=== PATIENT | female | born 1965 | race American Indian/Alaskan Native ===

== ENCOUNTER 2018-11-17 02:32 | Inpatient (IN) | payer BC ==
[2018-11-17] MEDS ORDERED: HYDROmorphone 1 MG/ML Syringe IVPUSH ONE (02:52)
[2018-11-17] MEDS ORDERED: Ondansetron 4 MG Tab.DIS PO ONE (02:52)
[2018-11-17] MEDS: Sodium Chloride 0.9% 10 ML Syringe FLUSH PRN ×2 (02:59→04:49)
[2018-11-17] MEDS ORDERED: Lactated Ringers 1,000 ML IV ONE ×2 (03:03→07:23)
--- NOTE | 2018-11-17 03:09 | EDM.PDOC ---
<MariuszBob G - Last Filed: 11/17/18 05:27> ED HPI GENERAL MEDICAL PROBLEM - General Chief Complaint: Abdominal Pain Stated Complaint: STOMACH PAIN Time Seen by Provider: 11/17/18 02:50 Source of Information: Reports: Patient, Old Records, RN History Limitations: Reports: No Limitations - History of Present Illness INITIAL COMMENTS - FREE TEXT/NARRATIVE: 53 yo NA female presents with epigastric pain that began about 0100h today. Pain has progressed since its onset and includes nausea. No hx of the same. Her only abdominal surgeries were for c-sections. Pain comes in waves. Feels a lot like labor pains only higher. Onset: Today Onset Date: 11/17/18 Onset Time: 01:00 Duration: Hour(s): (2), Getting Worse, Waxing/Waning Location: Reports: Abdomen (epigastric) Quality: Reports: Pressure Severity: Severe Improves with: Reports: Medication (in ER) Worsens with: Reports: Other (unknown) Context: Reports: Other (See HPI) Associated Symptoms: Reports: Nausea/Vomiting. Denies: Fever/Chills Treatments ONCOLOGY COORDINATOR: Reports: Other (see below) (none) epigastric Pain Score (Numeric/FACES): 10 - Related Data Allergies Allergy/AdvReac Type Severity Reaction Status Date / Time bee venom protein (honey bee) Allergy Anaphylactic Verified 11/17/18 04:07 Shock corn Allergy Anaphylactic Verified 11/17/18 04:07 Shock nut - unspecified Allergy Anaphylactic Verified 11/17/18 04:07 Shock topiramate Allergy Hives Verified 11/17/18 02:42 verapamil Allergy Other Verified 11/17/18 04:07 Home Meds: Home Meds Cetirizine HCl [Zyrtec] 10 mg PO DAILY 11/17/18 [History] Cyanocobalamin (Vitamin B-12) [Vitamin B-12] 1,000 mcg PO Q30D 11/17/18 [History ] Thyroid,Pork [Archives Technician Thyroid] 120 mg PO DAILY 11/17/18 [History] buPROPion HCl [Wellbutrin SR] 300 mg PO DAILY 11/17/18 [History] Past Medical History Genitourinary History: Reports: Renal Calculus 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 History: Reports: Musculoskeletal History: Reports: Fracture Neurological History: Reports: Head Trauma, Migraines Psychiatric History: Reports: Depression Endocrine/Metabolic History: Reports: Hypothyroidism, Obesity/BMI 30+, Vitamin D Deficiency - Past Surgical History Female Surgical History: Reports: Section, Tubal Ligation Musculoskeletal Surgical History: Reports: Ganglion Cyst Social & Family History - Tobacco Use Smoking Status *Q: Current Every Day Smoker Years of Tobacco use: 35 Packs/Tins Daily: 0.2 - Caffeine Use Caffeine Use: Reports: Soda - Recreational Drug Use Recreational Drug Use: No ED ROS GENERAL - Review of Systems Review Of Systems: See Below Constitutional: Reports: No Symptoms HEENT: Reports: No Symptoms Respiratory: Reports: No Symptoms Cardiovascular: Reports: No Symptoms Endocrine: Reports: No Symptoms GI/Abdominal: Reports: Abdominal Pain, Nausea, Vomiting. Denies: Black Stool, Bloody Stool, Constipation, Diarrhea, Distension, Flatus, Hematemesis, Hematochezia, Melena : Reports: No Symptoms Musculoskeletal: Reports: No Symptoms Skin: Reports: No Symptoms Neurological: Reports: No Symptoms Psychiatric: Reports: No Symptoms ED EXAM, GI/ABD - Physical Exam Exam: See Below Exam Limited By: No Limitations General Appearance: Alert, WD/WN, Moderate Distress Eyes: Bilateral: Normal Appearance Ears: Normal External Exam, Normal Canal, Hearing Grossly Normal Nose: Normal Inspection, No Blood Throat/Mouth: Normal Inspection, Normal Lips, Normal Oropharynx, Normal Voice, No Airway Compromise Head: Atraumatic, Normocephalic Neck: Normal Inspection Respiratory/Chest: No Respiratory Distress, Lungs Clear, Normal Breath Sounds, No Accessory Muscle Use Cardiovascular: Regular Rate, Rhythm, No Edema GI/Abdominal Exam: No Distention, Guarding, Tender (epigastric and RUQ tenderness.). No: Soft, Non-Tender, Distended Back Exam: Normal Inspection. No: CVA Tenderness (R), CVA Tenderness (L) Extremities: Normal Inspection, Normal Range of Motion, Non-Tender, No Pedal Edema Neurological: Alert, Oriented, CN II-XII Intact, Normal Cognition, No Motor/ Sensory Deficits Psychiatric: Normal Affect, Normal Mood Skin Exam: Warm, Dry, Intact, Normal Color, No Rash EKG INTERPRETATION EKG Date: 11/17/18 Time: 03:05 Rhythm: NSR Rate (Beats/Min): 66 Floyd: Normal P-Wave: Present QRS: Normal ST-T: Normal QT: Normal Comparison: NA - No Prior EKG Course - Vital Signs Last Recorded V/S: Last Vital Signs Temp 96.5 F 11/17/18 02:38 Pulse 74 11/17/18 06:27 Resp 17 11/17/18 06:27 BP 152/74 H 11/17/18 06:27 Pulse Ox 98 11/17/18 06:27 - Orders/Labs/Meds Orders: Active Orders 24 hr Category Date Time Status Cardiac Monitoring [RC] .As Directed Care 11/17/18 02:51 Active EKG Documentation Completion [RC] ASDIRECTED Care 11/17/18 02:51 Active Iopamidol [Isovue-300 (61%)] Med 11/17/18 04:32 Active 100 ml IV . DIRECTED PRN Lactated Ringers [Ringers, Lactated] 1,000 ml Med 11/17/18 04:00 Active IV ASDIRECTED Lactated Ringers [Ringers, Lactated] 1,000 ml Med 11/17/18 07:23 Active IV BOLUS Sodium Chloride 0.9% [Normal Saline] 75 ml Med 11/17/18 04:45 Active IV ASDIRECTED Sodium Chloride 0.9% [Saline Flush] Med 11/17/18 02:52 Active 10 ml FLUSH ASDIRECTED PRN Saline Lock Insert [OM.PC] Routine Oth 11/17/18 02:52 Ordered EKG 12 Lead [EK] Routine Ther 11/17/18 02:51 Ordered Medication Orders Lactated Ringer's (Ringers, Lactated) 1,000 mls @ 500 mls/hr IV ASDIRECTED [facility] Last Admin: 11/17/18 05:01 Dose: 500 mls/hr Sodium Chloride (Normal Saline) 75 mls @ 3 mls/sec IV ASDIRECTED IVETH Last Admin: 11/17/18 04:49 Dose: 3 mls/sec Lactated Ringer's (Ringers, Lactated) 1,000 mls @ 500 mls/hr IV BOLUS ONE Stop: 11/17/18 09:22 Last Admin: 11/17/18 07:29 Dose: 500 mls/hr Iopamidol (Isovue-300 (61%)) 100 ml IV . DIRECTED PRN PRN Reason: RADIOLOGY EXAM Stop: 11/18/18 04:33 Last Admin: 11/17/18 04:49 Dose: 100 ml Sodium Chloride (Saline Flush) 10 ml FLUSH ASDIRECTED PRN PRN Reason: Keep Vein Open Last Admin: 11/17/18 04:49 Dose: 10 ml Admin: 11/17/18 02:59 Dose: 10 ml Labs: Laboratory Tests 11/17/18 11/17/18 11/17/18 Range/Units 03:03 03:03 03:49 WBC 12.6 H (4.5-11.0) K/uL RBC 4.88 (3.30-5.50) M/uL Hgb 14.3 (12.0-15.0) g/dL Hct 41.9 (36.0-48.0) % MCV 86 (80-98) fL MCH 29 (27-31) pg MCHC 34 (32-36) % Plt Count 323 (150-400) K/uL Sodium 142 (140-148) mmol/L Potassium 3.8 (3.6-5.2) mmol/L Chloride 104 (100-108) mmol/L Carbon Dioxide 25 (21-32) mmol/L Anion Gap 12.8 (5.0-14.0) mmol/L BUN 17 (7-18) mg/dL Creatinine 1.1 H (0.6-1.0) mg/dL Est Cr Clr Drug Dosing 42.00 mL/min Estimated GFR (MDRD) 52 L (>60) Glucose 211 H (74-106) mg/dL Calcium 8.6 (8.5-10.1) mg/dL Total Bilirubin 0.8 (0.2-1.0) mg/dL AST 247 H (15-37) U/L ALT 198 H (12-78) U/L Alkaline Phosphatase 159 H (46-116) U/L Total Protein 6.8 (6.4-8.2) g/dL Albumin 3.6 (3.4-5.0) g/dL Globulin 3.2 (2.3-3.5) g/dL Albumin/Globulin Ratio 1.1 L (1.2-2.2) Triglycerides (15-150) mg/dL Lipase 63435 H (73-393) U/L Urine Color Bee Urine Appearance Cloudy Urine pH 5.0 (4.5-8.0) Ur Specific [place] 1.020 (1.008-1.030) Urine Protein Trace (NEGATIVE) mg/dL Urine Glucose (UA) Normal (NEGATIVE) mg/dL Urine Ketones Negative (NEGATIVE) mg/dL Urine Occult Blood Trace (NEGATIVE) Urine Nitrite Negative (NEGATIVE) Urine Bilirubin Small (NEGATIVE) Urine Urobilinogen 8 (NORMAL) mg/dL Ur Leukocyte Esterase Negative (NEGATIVE) Urine RBC 0-5 (0-5) Urine WBC 0-5 (0-5) Ur Epithelial Cells Moderate Amorphous Sediment Few Urine Bacteria Rare Urine Mucus Moderate Urine Other See note 11/17/18 Range/Units 06:52 WBC (4.5-11.0) K/uL RBC (3.30-5.50) M/uL Hgb (12.0-15.0) g/dL Hct (36.0-48.0) % MCV (80-98) fL MCH (27-31) pg MCHC (32-36) % Plt Count (150-400) K/uL Sodium (140-148) mmol/L Potassium (3.6-5.2) mmol/L Chloride (100-108) mmol/L Carbon Dioxide (21-32) mmol/L Anion Gap (5.0-14.0) mmol/L BUN (7-18) mg/dL Creatinine (0.6-1.0) mg/dL Est Cr Clr Drug Dosing mL/min Estimated GFR (MDRD) (>60) Glucose (74-106) mg/dL Calcium (8.5-10.1) mg/dL Total Bilirubin (0.2-1.0) mg/dL AST (15-37) U/L ALT (12-78) U/L Alkaline Phosphatase (46-116) U/L Total Protein (6.4-8.2) g/dL Albumin (3.4-5.0) g/dL Globulin (2.3-3.5) g/dL Albumin/Globulin Ratio (1.2-2.2) Triglycerides 115 (15-150) mg/dL Lipase (73-393) U/L Urine Color Urine Appearance Urine pH (4.5-8.0) Ur Specific [place] (1.008-1.030) Urine Protein (NEGATIVE) mg/dL Urine Glucose (UA) (NEGATIVE) mg/dL Urine Ketones (NEGATIVE) mg/dL Urine Occult Blood (NEGATIVE) Urine Nitrite (NEGATIVE) Urine Bilirubin (NEGATIVE) Urine Urobilinogen (NORMAL) mg/dL Ur Leukocyte Esterase (NEGATIVE) Urine RBC (0-5) Urine WBC (0-5) Ur Epithelial Cells Amorphous Sediment Urine Bacteria Urine Mucus Urine Other Meds: Medications Generic Name Dose Route Start Last Admin Trade Name Freq PRN Reason Stop Dose Admin Lactated Ringer's 1,000 mls @ 500 mls/hr 11/17/18 04:00 11/17/18 05:01 Ringers, Lactated IV 500 mls/hr ASDIRECTED IVETH Administration Sodium Chloride 75 mls @ 3 mls/sec 11/17/18 04:45 11/17/18 04:49 Normal Saline IV 3 mls/sec ASDIRECTED IVETH Administration Lactated Ringer's 1,000 mls @ 500 mls/hr 11/17/18 07:23 11/17/18 07:29 Ringers, Lactated IV 11/17/18 09:22 500 mls/hr BOLUS ONE Administration Iopamidol 100 ml 11/17/18 04:32 11/17/18 04:49 Isovue-300 (61%) IV 11/18/18 04:33 100 ml . DIRECTED PRN Administration RADIOLOGY EXAM Sodium Chloride 10 ml 11/17/18 02:52 11/17/18 04:49 Saline Flush FLUSH 10 ml ASDIRECTED PRN Administration Keep Vein Open Discontinued Medications Generic Name Dose Route Start Last Admin Trade Name Freq PRN Reason Stop Dose Admin Fentanyl 100 mcg 11/17/18 07:32 11/17/18 07:42 Sublimaze IVPUSH 11/17/18 07:33 100 mcg ONETIME ONE Administration Hydromorphone HCl 1 mg 11/17/18 02:52 11/17/18 02:57 Dilaudid IVPUSH 11/17/18 02:53 1 mg ONETIME ONE Administration Hydromorphone HCl 0.5 mg 11/17/18 03:22 11/17/18 03:28 Dilaudid IVPUSH 11/17/18 03:23 0.5 mg ONETIME ONE Administration Hydromorphone HCl 0.5 mg 11/17/18 06:33 11/17/18 06:37 Dilaudid IVPUSH 11/17/18 06:34 0.5 mg ONETIME ONE Administration Lactated Ringer's 1,000 mls @ 1,000 mls/hr 11/17/18 03:03 11/17/18 03:14 Ringers, Lactated IV 11/17/18 04:02 1,000 mls/hr BOLUS ONE Administration Ondansetron HCl 4 mg 11/17/18 02:52 11/17/18 02:56 Zofran Odt PO 11/17/18 02:53 4 mg ONETIME ONE Administration Ondansetron HCl 4 mg 11/17/18 03:47 11/17/18 04:09 Zofran Odt PO 11/17/18 03:48 4 mg ONETIME ONE Administration - Radiology Interpretation Free Text/Narrative:: CT abd/pelvis with IV contrast-acute pancreatitis CT Results Date: 11/17/18 CT Results Time: 05:20 Departure - Departure Disposition: Admitted As Inpatient 65 Clinical Impression: Elevated LFTs Acute pancreatitis Qualifiers: Pancreatitis type: biliary Acute pancreatitis complication: no infection or necrosis Qualified Code(s): K85.10 - Biliary acute pancreatitis without necrosis or infection - Discharge Information *PRESCRIPTION DRUG MONITORING PROGRAM REVIEWED*: No *COPY OF PRESCRIPTION DRUG MONITORING REPORT IN PATIENT KATYA: No Referrals: PCP,None [Primary Care Provider] - Forms: ED Department Discharge - My Orders Last 24 Hours: My Active Orders 11/17/18 07:23 Lactated Ringers [Ringers, Lactated] 1,000 ml IV BOLUS - Assessment/Plan Last 24 Hours: My Active Orders 11/17/18 07:23 Lactated Ringers [Ringers, Lactated] 1,000 ml IV BOLUS <Zay Esposito - Last Filed: 11/17/18 08:56> Departure - Departure Time of Disposition: 08:56 - Assessment/Plan Plan: Took over care from Dr. Richards at 7 AM Assessment Acuity = acute Site and laterality = acute cholecystitis with pancreatitis Etiology = probable gallstone etiology Manifestations = abdominal pain Location of injury = Home Lab values = WBC elevated 12.6 consistent leukocytosis, creatinine elevated 1.1 consistent with acute renal failure stage G IIIa AST elevated 247 ALG elevated 198 consistent with elevated liver enzymes lipase elevated 43,438 consistent with a pancreatitis triglycerides normal at 1:[address] scan shows acute pancreatitis ultrasound shows thickened gallbladder wall with gallstones of normal bile ducts no intrahepatic dilation consistent with acute cholecystitis Plan Called discussed case hospitalist environmental services attendant at 8:30 kindly agreed to come and evaluate the patient in the hospital for admission This note was dictated using [employer] voice recognition software please call with any questions on syntax or grammar.
[2018-11-17] MEDS ORDERED: HYDROmorphone 0.5 MG/0.5 ML Syringe IVPUSH ONE ×2 (03:22→06:33)
[2018-11-17] MEDS: Ondansetron 4 MG Tab.DIS PO ONE ×2 (03:55→04:09)
[2018-11-17] MEDS ORDERED: Lactated Ringers 1,000 ML IV SCH (04:00)
[2018-11-17] MEDS ORDERED: Iopamidol 612 MG/ML 100 ML Bottle IV PRN (04:32)
[2018-11-17] MEDS ORDERED: Sodium Bicarbonate 8.4% 50 MEQ/50 ML Syringe IVPUSH ONE (04:32)
[2018-11-17] MEDS ORDERED: Sodium Chloride 0.9% 75 ML IV SCH (04:45)
--- NOTE | 2018-11-17 05:16 | CRLCT ---
INDICATION: Pancreatitis with elevated liver function tests and abdominal pain TECHNIQUE: CT Abdomen and pelvis with i.v. contrast. Coronal and sagittal reformats were obtained. CONTRAST: 100 mL Isovue COMPARISON: None FINDINGS: Lower chest: There is a 7 mm nodule present within the right middle lobe. Liver: Unremarkable. Spleen: Unremarkable. Pancreas: Mild retroperitoneal edema is present surrounding the pancreas and tracking along the Gerota`s fascia bilaterally. No pancreatic necrosis is seen. Gallbladder: There is a 1.8 cm calcified gallstone present. Kidney: A simple cyst is seen upper pole of the left kidney measuring 3.3 cm. Punctate renal cysts are present in the lower pole of the right kidney. Adrenal: Unremarkable. Bowel: Moderate sigmoid diverticulosis is present with no evidence of diverticulitis. The appendix is normal in appearance and size. Vascular: Unremarkable. Lymph: Unremarkable. Peritoneum: Unremarkable. No pneumoperitoneum is seen. No significant ascites is noted. Pelvis: Unremarkable. Soft tissue: Unremarkable. Bone: Mild chronic compression deformity and Schmorl`s node seen along the superior endplate of L5. IMPRESSIONS: 1. There is a 7 mm nodule present within the right middle lobe. Initial followup chest CT in 6-12 months and subsequent followup at 18-24 months is advised in accordance with the 2017 Revised Fleischner Society Recommendations. 2. Mild retroperitoneal edema is present surrounding the pancreas and tracking along the Gerota`s fascia bilaterally. Findings compatible with diagnosis of acute pancreatitis. Dictated by Taj Main MD @ 11/17/2018 5:14:15 AM Please note that all CT scans at this facility use dose modulation, iterative reconstruction, and/or weight-based dosing when appropriate to reduce radiation dose to as low as reasonably achievable. Dictated by: Taj Main MD @ 11/17/2018 05:14:18 (Electronically Signed)
[2018-11-17] MEDS ORDERED: fentaNYL 100 MCG/2 ML SDV IVPUSH ONE (07:32)
--- NOTE | 2018-11-17 08:18 | CRLUS ---
INDICATION: PANCREATITIS. MILD LFTS ELEVATION. RUQ PAIN. COMPARISON: CT scan of the abdomen and pelvis dated 17 November 2018. FINDINGS: An abdominal ultrasound shows normal size, contour, and echogenicity of the liver. No bile duct dilation with the common bile duct measuring just under 6 mm. 2.4 cm gallstone in the gallbladder. A few other smaller gallstones. Mild gallbladder wall thickening. Positive sonographic Dueñas`s sign. No abnormalities identified in the visualized portions of the pancreatic head and body, aorta, IVC, and right kidney. No right-sided hydronephrosis. IMPRESSION: Cholelithiasis with sonographic evidence of cholecystitis. Dictated by Miller Farris MD @ 11/17/2018 8:16:22 AM Dictated by: Miller Farris MD @ 11/17/2018 08:16:43 (Electronically Signed)
--- NOTE | 2018-11-17 10:09 | PCM.HP ---
H&P History of Present Illness - General Date of Service: 11/17/18 Admit Problem/Dx: Admission Diagnosis/Problem Admission Diagnosis/Problem Pancreatitis Source of Information: Patient, Provider, RN Notes Reviewed History Limitations: Reports: No Limitations - History of Present Illness Initial Comments - Free Text/Narative: Ms. Lloyd is a 53-year-old woman who was admitted through the emergency department with severe abdominal pain and nausea secondary to pancreatitis and cholecystitis. She felt well until about 24 hours prior to admission when she noted mild to moderate ache in her abdomen radiating to the back. It improved through the day but then recurred much more severely early this morning. She presented to the emergency department and on evaluation was found to have marked elevation in lipase level at 43,000, elevation in transaminase levels and alkaline phosphatase. Bilirubin was found to be within normal range. She was tachycardic and tachypneic on initial presentation, after fluids respiratory rate and heart rate have improved. Abdominal pain has improved since admission, but she has received regular doses of Dilaudid. CT scan of the abdomen showed evidence of pancreatitis, no pancreatic necrosis. Abdominal ultrasound was also obtained and shows evidence of acute cholecystitis with cholelithiasis. There was no evidence of ductal dilatation. epigastric Pain Score (Numeric/FACES): 10 - Related Data Allergies/Adverse Reactions: Allergies Allergy/AdvReac Type Severity Reaction Status Date / Time bee venom protein (honey bee) Allergy Anaphylactic Verified 11/17/18 04:07 Shock corn Allergy Anaphylactic Verified 11/17/18 04:07 Shock nut - unspecified Allergy Anaphylactic Verified 11/17/18 04:07 Shock topiramate Allergy Hives Verified 11/17/18 02:42 verapamil Allergy Other Verified 11/17/18 04:07 Home Medications: Home Meds Cetirizine HCl [Zyrtec] 10 mg PO DAILY 11/17/18 [History] Cyanocobalamin (Vitamin B-12) [Vitamin B-12] 1,000 mcg PO Q30D 11/17/18 [History ] Thyroid,Pork [Sanding Machine Buffer Thyroid] 120 mg PO DAILY 11/17/18 [History] buPROPion HCl [Wellbutrin SR] 300 mg PO DAILY 11/17/18 [History] Past Medical History Genitourinary History: Reports: Renal Calculus 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: Musculoskeletal History: Reports: Fracture Neurological History: Reports: Head Trauma, Migraines Psychiatric History: Reports: Depression Endocrine/Metabolic History: Reports: Hypothyroidism, Obesity/BMI 30+, Vitamin D Deficiency - Past Surgical History Female Surgical History: Reports: Section, Tubal Ligation Musculoskeletal Surgical History: Reports: Ganglion Cyst Social & Family History - Tobacco Use Smoking Status *Q: Current Every Day Smoker Years of Tobacco use: 35 Packs/Tins Daily: 0.2 - Caffeine Use Caffeine Use: Reports: Soda - Recreational Drug Use Recreational Drug Use: No H&P Review of Systems - Review of Systems: Review Of Systems: See Below General: Reports: Chills, Weakness. Denies: Fever HEENT: Reports: No Symptoms Pulmonary: Reports: No Symptoms Cardiovascular: Reports: No Symptoms Gastrointestinal: Reports: Abdominal Pain, Decreased Appetite, Distension, Nausea, Vomiting. Denies: Black Stool, Bloody Stool, Constipation, Diarrhea, Difficulty Swallowing Genitourinary: Reports: No Symptoms Musculoskeletal: Reports: Back Pain. Denies: Neck Pain Skin: Reports: No Symptoms Psychiatric: Reports: No Symptoms Neurological: Reports: No Symptoms Hematologic/Lymphatic: Reports: No Symptoms Immunologic: Reports: No Symptoms Exam - Exam Exam: See Below - Vital Signs Vital Signs: Last Vital Signs Temp 96.5 F 11/17/18 02:38 Pulse 74 11/17/18 06:27 Resp 17 11/17/18 06:27 BP 152/74 H 11/17/18 06:27 Pulse Ox 98 11/17/18 06:27 Weight: 170 lb - Exam Quality Assessment: DVT Prophylaxis General: Alert, Oriented, Cooperative, Moderate Distress HEENT: Conjunctiva Clear, Hearing Intact, Mucosa Moist & [place], Normal Nasal Septum, Posterior Pharynx Clear, Pupils Equal Neck: Supple, Trachea Midline, +2 Carotid Pulse wo Bruit Lungs: Clear to Auscultation, Normal Respiratory Effort Cardiovascular: Regular Rate, Regular Rhythm, Normal S1, Normal S2. No: Systolic Murmur, Diastolic Murmur GI/Abdominal Exam: Soft, No Organomegaly, Distended, Tender. No: Guarding, Rigid, Rebound Back Exam: Normal Inspection, Full Range of Motion Extremities: Non-Tender, No Pedal Edema Skin: Warm, Dry Neurological: Cranial Nerves Intact, Strength Equal Bilateral, Normal Speech, Normal Tone, Sensation Intact. No: Focal Deficit Neuro Extensive - Mental Status: Alert, Oriented x3, Normal Mood/Affect, Normal Cognition, Memory Intact - Patient Data Lab Results Last 24 hrs: Laboratory Results - last 24 hr 11/17/18 11/17/18 11/17/18 Range/Units 03:03 03:03 03:49 WBC 12.6 H (4.5-11.0) K/uL RBC 4.88 (3.30-5.50) M/uL Hgb 14.3 (12.0-15.0) g/dL Hct 41.9 (36.0-48.0) % MCV 86 (80-98) fL MCH 29 (27-31) pg MCHC 34 (32-36) % Plt Count 323 (150-400) K/uL Sodium 142 (140-148) mmol/L Potassium 3.8 (3.6-5.2) mmol/L Chloride 104 (100-108) mmol/L Carbon Dioxide 25 (21-32) mmol/L Anion Gap 12.8 (5.0-14.0) mmol/L BUN 17 (7-18) mg/dL Creatinine 1.1 H (0.6-1.0) mg/dL Est Cr Clr Drug Dosing 42.00 mL/min Estimated GFR (MDRD) 52 L (>60) Glucose 211 H (74-106) mg/dL Calcium 8.6 (8.5-10.1) mg/dL Total Bilirubin 0.8 (0.2-1.0) mg/dL AST 247 H (15-37) U/L ALT 198 H (12-78) U/L Alkaline Phosphatase 159 H (46-116) U/L Total Protein 6.8 (6.4-8.2) g/dL Albumin 3.6 (3.4-5.0) g/dL Globulin 3.2 (2.3-3.5) g/dL Albumin/Globulin Ratio 1.1 L (1.2-2.2) Triglycerides (15-150) mg/dL Lipase 29191 H (73-393) U/L Urine Color [place] Urine Appearance Cloudy Urine pH 5.0 (4.5-8.0) Ur Specific [place] 1.020 (1.008-1.030) Urine Protein Trace (NEGATIVE) mg/dL Urine Glucose (UA) Normal (NEGATIVE) mg/dL Urine Ketones Negative (NEGATIVE) mg/dL Urine Occult Blood Trace (NEGATIVE) Urine Nitrite Negative (NEGATIVE) Urine Bilirubin Small (NEGATIVE) Urine Urobilinogen 8 (NORMAL) mg/dL Ur Leukocyte Esterase Negative (NEGATIVE) Urine RBC 0-5 (0-5) Urine WBC 0-5 (0-5) Ur Epithelial Cells Moderate Amorphous Sediment Few Urine Bacteria Rare Urine Mucus Moderate Urine Other See note 11/17/18 Range/Units 06:52 WBC (4.5-11.0) K/uL RBC (3.30-5.50) M/uL Hgb (12.0-15.0) g/dL Hct (36.0-48.0) % MCV (80-98) fL MCH (27-31) pg MCHC (32-36) % Plt Count (150-400) K/uL Sodium (140-148) mmol/L Potassium (3.6-5.2) mmol/L Chloride (100-108) mmol/L Carbon Dioxide (21-32) mmol/L Anion Gap (5.0-14.0) mmol/L BUN (7-18) mg/dL Creatinine (0.6-1.0) mg/dL Est Cr Clr Drug Dosing mL/min Estimated GFR (MDRD) (>60) Glucose (74-106) mg/dL Calcium (8.5-10.1) mg/dL Total Bilirubin (0.2-1.0) mg/dL AST (15-37) U/L ALT (12-78) U/L Alkaline Phosphatase (46-116) U/L Total Protein (6.4-8.2) g/dL Albumin (3.4-5.0) g/dL Globulin (2.3-3.5) g/dL Albumin/Globulin Ratio (1.2-2.2) Triglycerides 115 (15-150) mg/dL Lipase (73-393) U/L Urine Color Urine Appearance Urine pH (4.5-8.0) Ur Specific [place] (1.008-1.030) Urine Protein (NEGATIVE) mg/dL Urine Glucose (UA) (NEGATIVE) mg/dL Urine Ketones (NEGATIVE) mg/dL Urine Occult Blood (NEGATIVE) Urine Nitrite (NEGATIVE) Urine Bilirubin (NEGATIVE) Urine Urobilinogen (NORMAL) mg/dL Ur Leukocyte Esterase (NEGATIVE) Urine RBC (0-5) Urine WBC (0-5) Ur Epithelial Cells Amorphous Sediment Urine Bacteria Urine Mucus Urine Other Result Diagrams: 11/17/18 03:03 11/17/18 03:03 *Q Meaningful Use (ADM) - VTE Risk Assess *Q Each Risk Factor Represents 1 Point: Age 41 - 59 years, Obesity ( BMI > 25 kg/m2 ) Total Score 1 Point Risk Factors: 2 Each Risk Factor Represents 2 Points: None Total Score 2 Point Risk Factors: 0 Each Risk Factor Represents 3 Points: None Total Score 3 Point Risk Factors: 0 Each Risk Factor Represents 5 Points: None Total Score 5 Point Risk Factors: 0 Venous Thromboembolism Risk Factor Score *Q: 2 Problem List Initiated/Reviewed/Updated: Yes Orders Last 24hrs: Active Orders 24 hr Category Date Time Status Patient Status Manage Transfer [TRANSFER] Routine ADT 11/17/18 08:51 Active Cardiac Monitoring [RC] .As Directed Care 11/17/18 02:51 Active EKG Documentation Completion [RC] ASDIRECTED Care 11/17/18 02:51 Active BASIC METABOLIC PANEL,BMP [CHEM] Stat Lab 11/17/18 17:00 Ordered LIPASE [CHEM] Stat Lab 11/17/18 17:00 Ordered Iopamidol [Isovue-300 (61%)] Med 11/17/18 04:32 Active 100 ml IV . DIRECTED PRN Lactated Ringers [Ringers, Lactated] 1,000 ml Med 11/17/18 04:00 Active IV ASDIRECTED Sodium Chloride 0.9% [Normal Saline] 75 ml Med 11/17/18 04:45 Active IV ASDIRECTED Sodium Chloride 0.9% [Saline Flush] Med 11/17/18 02:52 Active 10 ml FLUSH ASDIRECTED PRN Saline Lock Insert [OM.PC] Routine Oth 11/17/18 02:52 Ordered Resuscitation Status Routine Resus Stat 11/17/18 08:53 Ordered EKG 12 Lead [EK] Routine Ther 11/17/18 02:51 Ordered Medication Orders Lactated Ringer's (Ringers, Lactated) 1,000 mls @ 500 mls/hr IV ASDIRECTED IVETH Last Admin: 11/17/18 05:01 Dose: 500 mls/hr Sodium Chloride (Normal Saline) 75 mls @ 3 mls/sec IV ASDIRECTED IVETH Last Admin: 11/17/18 04:49 Dose: 3 mls/sec Iopamidol (Isovue-300 (61%)) 100 ml IV . DIRECTED PRN PRN Reason: RADIOLOGY EXAM Stop: 11/18/18 04:33 Last Admin: 11/17/18 04:49 Dose: 100 ml Sodium Chloride (Saline Flush) 10 ml FLUSH ASDIRECTED PRN PRN Reason: Keep Vein Open Last Admin: 11/17/18 04:49 Dose: 10 ml Admin: 11/17/18 02:59 Dose: 10 ml Assessment/Plan Comment:: ASSESSMENT AND PLAN PANCREATITIS/CHOLECYSTITIS-likely secondary to common duct stone. No evidence of ductal dilatation noted on CT scan or ultrasound, likely that the stone has passed. She reports improvement in her abdominal pain. There was marked elevation in lipase level at 43,000. -Clear liquid diet -IV fluids for hydration -Unasyn 1.5 g IV every 6 hours -Reassess labs this afternoon and in a.m. -Consider MRCP if bilirubin level increases -Cholecystectomy after pancreatitis has resolved HYPOTHYROIDISM -Continue usual dose of outpatient thyroid replacement medication -SH in a.m. MAINTENANCE ISSUES -DVT prophylaxis; scuds -GI prophylaxis; Protonix 40 mg IV daily -Solitario catheter; not indicated -Nutrition; clear liquid diet -Nicotine dependence;Not required CODE STATUS-FULL CODE ADMISSION STATUS-patient will be admitted to inpatient status, expect at least a 2 night hospital stay for evaluation and management of problems as outlined above. At the time of this admission I do not reasonably expected evaluation and management of this problem will require more than a 96 hour hospital stay. DISPOSITION-anticipate discharge to home after the hospital stay. PRIMARY CARE PROVIDER-
[2018-11-17] MEDS ORDERED: HYDROmorphone 0.5 MG/0.5 ML Syringe IVPUSH PRN (10:32)
[2018-11-17] MEDS ORDERED: Sodium Chloride 0.9% 10 ML Syringe FLUSH PRN (10:32)
[2018-11-17] MEDS ORDERED: Polyethylene Glycol 3350 Powder 17 GM Packet PO PRN (10:32)
[2018-11-17] MEDS: Lactated Ringers 1,000 ML IV SCH ×2 (10:46→18:25)
[2018-11-17] MEDS: Acetaminophen 325 MG Tab PO PRN (10:47)
[2018-11-17] MEDS: Ondansetron 4 MG/2 ML SDV IV PRN ×3 (10:47→22:03)
[2018-11-17] MEDS: Ampicillin/Sulbactam Na 1.5 GM in Sodium Chloride 0.9% 50 ML IV SCH ×3 (10:53→22:03)
[2018-11-17] MEDS: Cetirizine 10 MG Tab PO SCH (11:04)
[2018-11-17] MEDS: Pantoprazole 40 MG Vial IVPUSH SCH (11:32)
--- NOTE | 2018-11-17 13:00 | PCM.CONS ---
H&P History of Present Illness - General Date of Service: 11/17/18 Admit Problem/Dx: Admission Diagnosis/Problem Admission Diagnosis/Problem Pancreatitis Source of Information: Patient, Provider History Limitations: Reports: No Limitations - History of Present Illness Initial Comments - Free Text/Narative: This 53 year old white female had [place] for supper two days ago. She awakened at 4:00 AM yesterday with epigastric pain that radiated into her back. This was associated with nausea and vomiting. She came in to the ER today and was diagnosed with acute pancreatitis. She has not had prior similar symptoms. Her pain persists but is less. Her nausea and vomiting has resolved. She consumes no alcohol. A CT scan of her abdomen and pelvis shows cholelithiasis and acute pancreatitis. Abdominal ultrasound shows a 2.4 cm gall stone with smaller stones, a mildly thickened gall bladder wall, positive Dueñas sign, and normal appearing bile ducts. Prior abdominal surgery consists of two sections done elsewhere. Her laboratory includes an elevated lipase of 43,438. 12,600 WBC, H/H 1`4.3/41.9, 323,000 Plts, Na+ 142, K+ 3.8, CL- 104, HCO3- 25, BUN 17, Creat 1.1, Ca++ 8.6, Alb 3.2, T. Bili 0.8, AST 247, ALT 198, Alk Phos 159, TP 6.8, TG 115. Exam: She appears well. She is alert and oriented. Temperature 97.3. VS nl. Lungs clear. Heart RRR at 100 BMP. Abdomen quiet with epigastric and right upper quadrant tenderness. No obvious mass. Negative Rodriguez-Richardson sign. Impression: Acute pancreatitis. Cholelithiasis with cholecystitis. Plan: Agree with present management of bowel rest, aggressive IV support and antibiotics for the cholecystitis. Will follow. Onset of Symptoms: Reports: Sudden Symptom Onset Date: 11/16/18 Symptom Onset Time: 04:00 Duration of Symptoms: Reports: Improving Location: Reports: Abdomen, Back Quality: Reports: Burning Severity: Severe Improves with: Reports: None Worsens with: Reports: Movement Associated Symptoms: Reports: Nausea/Vomiting epigastric Pain Score (Numeric/FACES): 3 - Related Data Allergies/Adverse Reactions: Allergies Allergy/AdvReac Type Severity Reaction Status Date / Time bee venom protein (honey bee) Allergy Anaphylactic Verified 11/17/18 04:07 Shock corn Allergy Anaphylactic Verified 11/17/18 04:07 Shock nut - unspecified Allergy Anaphylactic Verified 11/17/18 04:07 Shock topiramate Allergy Hives Verified 11/17/18 02:42 verapamil Allergy Other Verified 11/17/18 04:07 Home Medications: Home Meds Cetirizine HCl [Zyrtec] 10 mg PO DAILY 11/17/18 [History] Cyanocobalamin (Vitamin B-12) [Vitamin B-12] 1,000 mcg PO Q30D 11/17/18 [History ] Thyroid,Pork [[place] Thyroid] 120 mg PO DAILY 11/17/18 [History] buPROPion HCl [Wellbutrin SR] 300 mg PO DAILY 11/17/18 [History] Past Medical History Genitourinary History: Reports: 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: Musculoskeletal History: Reports: Fracture Neurological History: Reports: Head Trauma, Migraines Psychiatric History: Reports: Depression Endocrine/Metabolic History: Reports: Hypothyroidism, Obesity/BMI 30+, Vitamin D Deficiency - Past Surgical History Female Surgical History: Reports: Section, Tubal Ligation Musculoskeletal Surgical History: Reports: Ganglion Cyst Social & Family History - Tobacco Use Smoking Status *Q: Current Every Day Smoker Years of Tobacco use: 30 Packs/Tins Daily: 0.5 - Caffeine Use Caffeine Use: Reports: Soda - Recreational Drug Use Recreational Drug Use: No H&P Review of Systems - Review of Systems: Review Of Systems: See Below General: Reports: Other (Abdominal pain into back with nausea and vomiting.) HEENT: Reports: No Symptoms Pulmonary: Reports: No Symptoms Cardiovascular: Reports: No Symptoms Gastrointestinal: Reports: Abdominal Pain, Nausea (Improving), Vomiting Genitourinary: Reports: No Symptoms Musculoskeletal: Reports: No Symptoms Skin: Reports: No Symptoms Psychiatric: Reports: No Symptoms Neurological: Reports: No Symptoms Hematologic/Lymphatic: Reports: No Symptoms Immunologic: Reports: No Symptoms Exam - Exam Exam: See Below - Vital Signs Vital Signs: Last Vital Signs Temp 97.3 F 11/17/18 11:00 Pulse 74 11/17/18 06:27 Resp 16 11/17/18 12:00 BP 133/51 L 11/17/18 12:00 Pulse Ox 93 L 11/17/18 12:00 Weight: 169 lb 15.622 oz - Exam General: Alert, Oriented, Cooperative Lungs: Clear to Auscultation, Normal Respiratory Effort Cardiovascular: Regular Rate, Regular Rhythm GI/Abdominal Exam: Guarding, Tender, Abnormal Bowel Sounds (Quiet. ). No: Normal Bowel Sounds, Non-Tender Back Exam: Normal Inspection, Other (No Rodriguez-Richardson sign) Extremities: Normal Inspection Skin: Warm, Intact Neuro Extensive - Mental Status: Alert, Oriented x3, Normal Mood/Affect, Normal Cognition Psychiatric: Alert, Normal Affect, Normal Mood - Patient Data Lab Results Last 24 hrs: Laboratory Results - last 24 hr 11/17/18 11/17/18 11/17/18 Range/Units 03:03 03:03 03:49 WBC 12.6 H (4.5-11.0) K/uL RBC 4.88 (3.30-5.50) M/uL Hgb 14.3 (12.0-15.0) g/dL Hct 41.9 (36.0-48.0) % MCV 86 (80-98) fL MCH 29 (27-31) pg MCHC 34 (32-36) % Plt Count 323 (150-400) K/uL Sodium 142 (140-148) mmol/L Potassium 3.8 (3.6-5.2) mmol/L Chloride 104 (100-108) mmol/L Carbon Dioxide 25 (21-32) mmol/L Anion Gap 12.8 (5.0-14.0) mmol/L BUN 17 (7-18) mg/dL Creatinine 1.1 H (0.6-1.0) mg/dL Est Cr Clr Drug Dosing 42.00 mL/min Estimated GFR (MDRD) 52 L (>60) Glucose 211 H (74-106) mg/dL Calcium 8.6 (8.5-10.1) mg/dL Total Bilirubin 0.8 (0.2-1.0) mg/dL AST 247 H (15-37) U/L ALT 198 H (12-78) U/L Alkaline Phosphatase 159 H (46-116) U/L Total Protein 6.8 (6.4-8.2) g/dL Albumin 3.6 (3.4-5.0) g/dL Globulin 3.2 (2.3-3.5) g/dL Albumin/Globulin Ratio 1.1 L (1.2-2.2) Triglycerides (15-150) mg/dL Lipase 82672 H (73-393) U/L Urine Color [place] Urine Appearance Cloudy Urine pH 5.0 (4.5-8.0) Ur Specific [place] 1.020 (1.008-1.030) Urine Protein Trace (NEGATIVE) mg/dL Urine Glucose (UA) Normal (NEGATIVE) mg/dL Urine Ketones Negative (NEGATIVE) mg/dL Urine Occult Blood Trace (NEGATIVE) Urine Nitrite Negative (NEGATIVE) Urine Bilirubin Small (NEGATIVE) Urine Urobilinogen 8 (NORMAL) mg/dL Ur Leukocyte Esterase Negative (NEGATIVE) Urine RBC 0-5 (0-5) Urine WBC 0-5 (0-5) Ur Epithelial Cells Moderate Amorphous Sediment Few Urine Bacteria Rare Urine Mucus Moderate Urine Other See note 11/17/18 Range/Units 06:52 WBC (4.5-11.0) K/uL RBC (3.30-5.50) M/uL Hgb (12.0-15.0) g/dL Hct (36.0-48.0) % MCV (80-98) fL MCH (27-31) pg MCHC (32-36) % Plt Count (150-400) K/uL Sodium (140-148) mmol/L Potassium (3.6-5.2) mmol/L Chloride (100-108) mmol/L Carbon Dioxide (21-32) mmol/L Anion Gap (5.0-14.0) mmol/L BUN (7-18) mg/dL Creatinine (0.6-1.0) mg/dL Est Cr Clr Drug Dosing mL/min Estimated GFR (MDRD) (>60) Glucose (74-106) mg/dL Calcium (8.5-10.1) mg/dL Total Bilirubin (0.2-1.0) mg/dL AST (15-37) U/L ALT (12-78) U/L Alkaline Phosphatase (46-116) U/L Total Protein (6.4-8.2) g/dL Albumin (3.4-5.0) g/dL Globulin (2.3-3.5) g/dL Albumin/Globulin Ratio (1.2-2.2) Triglycerides 115 (15-150) mg/dL Lipase (73-393) U/L Urine Color Urine Appearance Urine pH (4.5-8.0) Ur Specific [place] (1.008-1.030) Urine Protein (NEGATIVE) mg/dL Urine Glucose (UA) (NEGATIVE) mg/dL Urine Ketones (NEGATIVE) mg/dL Urine Occult Blood (NEGATIVE) Urine Nitrite (NEGATIVE) Urine Bilirubin (NEGATIVE) Urine Urobilinogen (NORMAL) mg/dL Ur Leukocyte Esterase (NEGATIVE) Urine RBC (0-5) Urine WBC (0-5) Ur Epithelial Cells Amorphous Sediment Urine Bacteria Urine Mucus Urine Other Result Diagrams: 11/17/18 03:03 11/17/18 03:03 Consult PN Assessment/Plan (1) Acute pancreatitis SNOMED Code(s): 583376067 Code(s): K85.90 - ACUTE PANCREATITIS WITHOUT NECROSIS OR INFECTION, UNSP Current Visit: Yes Qualifiers: Pancreatitis type: biliary Acute pancreatitis complication: no infection or necrosis Qualified Code(s): K85.10 - Biliary acute pancreatitis without necrosis or infection Problem List Initiated/Reviewed/Updated: Yes Plan: See above narrative.
[2018-11-17] MEDS: LORazepam 2 MG/ML SDV IVPUSH PRN ×2 (13:29→20:36)
[2018-11-17] MEDS: buPROPion 150 MG Tab.SR PO SCH (15:58)
[2018-11-17] MEDS: HYDROmorphone 0.5 MG/0.5 ML Syringe IVPUSH PRN (20:37)
[2018-11-18] MEDS: Lactated Ringers 1,000 ML IV SCH ×2 (02:35→12:34)
[2018-11-18] MEDS: Ampicillin/Sulbactam Na 1.5 GM in Sodium Chloride 0.9% 50 ML IV SCH (04:11)
[2018-11-18] MEDS: HYDROmorphone 0.5 MG/0.5 ML Syringe IVPUSH PRN ×2 (04:17→19:42)
--- NOTE | 2018-11-18 09:09 | PCM.PN ---
- General Info Date of Service: 11/18/18 Subjective Update: No acute events overnight. Still having at least moderate abdominal pain though it is better than at the time of admission. She has a little bit of a cough. No significant nausea at this time. No fevers overnight. Lipase level has improved significantly but not normalized. She has been urinating frequently. Functional Status: Reports: Tolerating Diet. Denies: Pain Controlled - Review of Systems General: Denies: Fever Gastrointestinal: Reports: Abdominal Pain - Patient Data Vitals - Most Recent: Last Vital Signs Temp 37.3 C 11/18/18 08:00 Pulse 80 11/18/18 08:00 Resp 18 11/18/18 08:00 BP 122/53 L 11/18/18 08:00 Pulse Ox 90 L 11/18/18 08:00 Weight - Most Recent: 77.1 kg I&O - Last 24 Hours: Intake & Output 11/17/18 11/18/18 11/18/18 22:59 06:59 14:59 Intake Total 880 1450 Output Total 1700 650 500 Balance -820 800 -500 Lab Results Last 24 Hours: Laboratory Results - last 24 hr 11/17/18 11/18/18 11/18/18 Range/Units 17:01 06:00 06:00 WBC 15.7 H (4.5-11.0) K/uL RBC 4.34 (3.30-5.50) M/uL Hgb 12.6 (12.0-15.0) g/dL Hct 38.6 (36.0-48.0) % MCV 89 (80-98) fL MCH 29 (27-31) pg MCHC 33 (32-36) % Plt Count 276 (150-400) K/uL Neut % (Auto) 85 H (36-66) % Lymph % (Auto) 7 L (24-44) % [place] % (Auto) 7 H (2-6) % Eos % (Auto) 1 L (2-4) % Baso % (Auto) 0 (0-1) % Sodium 142 (140-148) mmol/L Potassium 3.9 (3.6-5.2) mmol/L Chloride 105 (100-108) mmol/L Carbon Dioxide 27 (21-32) mmol/L Anion Gap 10.2 (5.0-14.0) mmol/L BUN 11 (7-18) mg/dL Creatinine 0.8 (0.6-1.0) mg/dL Est Cr Clr Drug Dosing 57.74 mL/min Estimated GFR (MDRD) > 60 (>60) Glucose 128 H (74-106) mg/dL Calcium 8.4 L (8.5-10.1) mg/dL Magnesium (1.8-2.4) mg/dL Total Bilirubin (0.2-1.0) mg/dL AST (15-37) U/L ALT (12-78) U/L Alkaline Phosphatase (46-116) U/L Total Protein (6.4-8.2) g/dL Albumin (3.4-5.0) g/dL Globulin (2.3-3.5) g/dL Albumin/Globulin Ratio (1.2-2.2) Amylase 250 H (25-115) U/L Lipase 2764 H 886 H (73-393) U/L TSH, Ultra Sensitive 0.815 (0.358-3.740) uIU/mL 11/18/18 Range/Units 06:00 WBC (4.5-11.0) K/uL RBC (3.30-5.50) M/uL Hgb (12.0-15.0) g/dL Hct (36.0-48.0) % MCV (80-98) fL MCH (27-31) pg MCHC (32-36) % Plt Count (150-400) K/uL Neut % (Auto) (36-66) % Lymph % (Auto) (24-44) % [place] % (Auto) (2-6) % Eos % (Auto) (2-4) % Baso % (Auto) (0-1) % Sodium 141 (140-148) mmol/L Potassium 4.0 (3.6-5.2) mmol/L Chloride 105 (100-108) mmol/L Carbon Dioxide 29 (21-32) mmol/L Anion Gap 6.8 (5.0-14.0) mmol/L BUN 9 (7-18) mg/dL Creatinine 0.7 (0.6-1.0) mg/dL Est Cr Clr Drug Dosing 65.99 mL/min Estimated GFR (MDRD) > 60 (>60) Glucose 118 H (74-106) mg/dL Calcium 8.6 (8.5-10.1) mg/dL Magnesium 2.0 (1.8-2.4) mg/dL Total Bilirubin 0.5 (0.2-1.0) mg/dL AST 45 H D (15-37) U/L ALT 105 H (12-78) U/L Alkaline Phosphatase 134 H (46-116) U/L Total Protein 6.2 L (6.4-8.2) g/dL Albumin 3.1 L (3.4-5.0) g/dL Globulin 3.1 (2.3-3.5) g/dL Albumin/Globulin Ratio 1.0 L (1.2-2.2) Amylase (25-115) U/L Lipase (73-393) U/L TSH, Ultra Sensitive (0.358-3.740) uIU/mL Med Orders - Current: Current Medications Acetaminophen (Tylenol) 650 mg PO Q4H PRN PRN Reason: Pain (Mild 1-3)/fever Last Admin: 11/17/18 10:47 Dose: 650 mg Bupropion HCl (Wellbutrin Sr) 300 mg PO DAILY [facility] Last Admin: 11/17/18 15:58 Dose: Not Given Cetirizine HCl (Zyrtec) 10 mg PO DAILY [facility] Last Admin: 11/17/18 11:04 Dose: Not Given Hydromorphone HCl (Dilaudid) 0.5 mg IVPUSH Q2H PRN PRN Reason: Pain Piperacillin Sod/Tazobactam (Sod 3.375 gm/ Sodium Chloride) 50 mls @ 100 mls/ hr IV Q6H [facility] Lactated Ringer's (Ringers, Lactated) 1,000 mls @ 75 mls/hr IV ASDIRECTED [facility] Ibuprofen (Motrin) 600 mg PO Q6H PRN PRN Reason: Headache Lorazepam (Ativan) 0.25 mg IVPUSH Q2H PRN PRN Reason: Nausea Last Admin: 11/17/18 20:36 Dose: 0.25 mg Ondansetron HCl (Zofran) 4 mg IV Q4H PRN PRN Reason: Nausea/Vomiting Last Admin: 11/17/18 22:03 Dose: 4 mg Pantoprazole Sodium (Protonix Iv) 40 mg IVPUSH Q24H [facility] Last Admin: 11/17/18 11:32 Dose: 40 mg Polyethylene Glycol (Miralax) 17 gm PO DAILY PRN PRN Reason: Constipation Sodium Chloride (Saline Flush) 10 ml FLUSH ASDIRECTED PRN PRN Reason: Keep Vein Open Thyroid ([place] Thyroid) 120 mg PO DAILY@0730 [facility] Last Admin: 11/17/18 11:04 Dose: Not Given Discontinued Medications Fentanyl (Sublimaze) 100 mcg IVPUSH ONETIME ONE Stop: 11/17/18 07:33 Last Admin: 11/17/18 07:42 Dose: 100 mcg Hydromorphone HCl (Dilaudid) 1 mg IVPUSH ONETIME ONE Stop: 11/17/18 02:53 Last Admin: 11/17/18 02:57 Dose: 1 mg Hydromorphone HCl (Dilaudid) 0.5 mg IVPUSH ONETIME ONE Stop: 11/17/18 03:23 Last Admin: 11/17/18 03:28 Dose: 0.5 mg Hydromorphone HCl (Dilaudid) 0.5 mg IVPUSH ONETIME ONE Stop: 11/17/18 06:34 Last Admin: 11/17/18 06:37 Dose: 0.5 mg Hydromorphone HCl (Dilaudid) 0.5 mg IVPUSH Q2H PRN PRN Reason: Pain Last Admin: 11/17/18 12:56 Dose: 0.5 mg Hydromorphone HCl (Dilaudid) 0.25 mg IVPUSH Q2H PRN PRN Reason: Pain Last Admin: 11/18/18 04:17 Dose: 0.25 mg Lactated Ringer's (Ringers, Lactated) 1,000 mls @ 1,000 mls/hr IV BOLUS ONE Stop: 11/17/18 04:02 Last Admin: 11/17/18 03:14 Dose: 1,000 mls/hr Lactated Ringer's (Ringers, Lactated) 1,000 mls @ 500 mls/hr IV ASDIRECTED [facility] Last Admin: 11/17/18 05:01 Dose: 500 mls/hr Sodium Chloride (Normal Saline) 75 mls @ 3 mls/sec IV ASDIRECTED [facility] Last Admin: 11/17/18 04:49 Dose: 3 mls/sec Lactated Ringer's (Ringers, Lactated) 1,000 mls @ 500 mls/hr IV BOLUS ONE Stop: 11/17/18 09:22 Last Admin: 11/17/18 07:29 Dose: 500 mls/hr Ampicillin Sodium/Sulbactam (Sodium 1.5 gm/ Sodium Chloride) 50 mls @ 100 mls/ hr IV Q6HR [facility] Last Admin: 11/18/18 04:11 Dose: 100 mls/hr Lactated Ringer's (Ringers, Lactated) 1,000 mls @ 125 mls/hr IV ASDIRECTED [facility] Last Admin: 11/18/18 02:35 Dose: 125 mls/hr Iopamidol (Isovue-300 (61%)) 100 ml IV . DIRECTED PRN PRN Reason: RADIOLOGY EXAM Stop: 11/18/18 04:33 Last Admin: 11/17/18 04:49 Dose: 100 ml Ondansetron HCl (Zofran Odt) 4 mg PO ONETIME ONE Stop: 11/17/18 02:53 Last Admin: 11/17/18 02:56 Dose: 4 mg Ondansetron HCl (Zofran Odt) 4 mg PO ONETIME ONE Stop: 11/17/18 03:48 Last Admin: 11/17/18 04:09 Dose: 4 mg Sodium Chloride (Saline Flush) 10 ml FLUSH ASDIRECTED PRN PRN Reason: Keep Vein Open Last Admin: 11/17/18 04:49 Dose: 10 ml - Exam Quality Assessment: No: Supplemental Oxygen General: Alert, Oriented, Cooperative, No Acute Distress Lungs: Clear to Auscultation, Normal Respiratory Effort Cardiovascular: Regular Rate, Regular Rhythm GI/Abdominal Exam: Soft, No Distention Extremities: No Pedal Edema Psy/Mental Status: Alert, Normal Affect - Problem List Review Problem List Initiated/Reviewed/Updated: Yes - My Orders Last 24 Hours: My Active Orders 11/18/18 09:06 Ibuprofen [Motrin] 600 mg PO Q6H PRN 11/18/18 09:08 Transfer Patient (Change bed) [ADT] Routine HYDROmorphone [Dilaudid] 0.5 mg IVPUSH Q2H PRN 11/18/18 09:30 Lactated Ringers [Ringers, Lactated] 1,000 ml IV ASDIRECTED 11/18/18 10:00 Piperacillin/Tazobactam [Zosyn] 3.375 gm Sodium Chloride 0.9% [Normal Saline] 50 ml IV Q6H 11/19/18 05:00 CBC W/O DIFF,HEMOGRAM [HEME] Timed (1) COMPREHENSIVE METABOLIC PN,CMP [CHEM] Timed LIPASE [CHEM] Timed - Plan Plan:: ASSESSMENT AND PLAN [place] PANCREATITIS WITH CHOLECYSTITIS AND CHOLELITHIASIS - likely secondary to common duct stone that seems to have passed. Pain has decreased but not resolved. Lipase level is dramatically better today but not normalized. No fevers. -Clear liquid diet -Gentle IV fluids -Pip/Tazo for antibiotic coverage -Reassess labs in a.m. -Cholecystectomy after pancreatitis has resolved, likely Sunday HYPOTHYROIDISM - stable -Continue usual dose of outpatient thyroid replacement medication MAINTENANCE ISSUES -DVT prophylaxis; scuds -GI prophylaxis; Protonix 40 mg IV daily -Solitario catheter; not indicated -Nutrition; clear liquid diet DISPOSITION - anticipate discharge to home after the hospital stay. Howard Ballard M.D.
[2018-11-18] MEDS: Cetirizine 10 MG Tab PO SCH (09:13)
[2018-11-18] MEDS ORDERED: Magnesium Hydroxide 400 MG/5 ML Susp 30 ML Cup PO PRN (09:13)
[2018-11-18] MEDS: buPROPion 150 MG Tab.SR PO SCH (09:14)
[2018-11-18] MEDS: oxyCODONE 5 MG Tab PO PRN (09:31)
[2018-11-18] MEDS: Ibuprofen 600 MG Tab PO PRN (09:32)
[2018-11-18] MEDS: Ondansetron 4 MG/2 ML SDV IV PRN ×2 (09:35→19:46)
[2018-11-18] MEDS: Piperacillin/Tazobactam/Dext 3.375 GM in Premix Bag 1 BAG IV SCH ×3 (09:53→21:36)
[2018-11-18] MEDS: Pantoprazole 40 MG Vial IVPUSH SCH (10:34)
[2018-11-18] MEDS: Acetaminophen 325 MG Tab PO PRN (19:45)
[2018-11-19] MEDS: Lactated Ringers 1,000 ML IV SCH ×2 (03:01→21:43)
[2018-11-19] MEDS: Piperacillin/Tazobactam/Dext 3.375 GM in Premix Bag 1 BAG IV SCH ×4 (03:04→21:47)
[2018-11-19] MEDS: HYDROmorphone 0.5 MG/0.5 ML Syringe IVPUSH PRN ×3 (03:04→20:34)
[2018-11-19] MEDS: Ondansetron 4 MG/2 ML SDV IV PRN (03:11)
[2018-11-19] MEDS: buPROPion 150 MG Tab.SR PO SCH (08:43)
[2018-11-19] MEDS: Cetirizine 10 MG Tab PO SCH (08:43)
[2018-11-19] MEDS: Pantoprazole 40 MG Vial IVPUSH SCH (10:46)
[2018-11-19] MEDS: Ibuprofen 600 MG Tab PO PRN ×2 (12:07→20:34)
[2018-11-20] MEDS: Piperacillin/Tazobactam/Dext 3.375 GM in Premix Bag 1 BAG IV SCH ×4 (03:18→22:43)
[2018-11-20] MEDS: HYDROmorphone 0.5 MG/0.5 ML Syringe IVPUSH PRN ×3 (03:32→22:49)
[2018-11-20] MEDS ORDERED: diphenhydrAMINE/Zinc Acetate 2% Crm 28.4 GM Tube TOP PRN (10:40)
--- NOTE | 2018-11-20 10:41 | PCM.PN ---
- General Info Date of Service: 11/20/18 Subjective Update: there were no acute events overnight. No fevers. Patient still reports ongoing moderate abdominal pain which is stable to slightly improved. No significant nausea. No appetite and oral intake has not been great. Otherwise she feels well with no shortness of breath. Surgical intervention planned for this afternoon. Functional Status: Reports: Pain Controlled - Review of Systems General: Denies: Fever, Appetite Gastrointestinal: Reports: Abdominal Pain - Patient Data Vitals - Most Recent: Last Vital Signs Temp 37.1 C 11/20/18 06:42 Pulse 81 11/20/18 06:42 Resp 18 11/20/18 06:42 BP 140/73 11/20/18 06:42 Pulse Ox 93 L 11/20/18 06:42 Weight - Most Recent: 77.1 kg I&O - Last 24 Hours: Intake & Output 11/19/18 11/20/18 11/20/18 22:59 06:59 14:59 Intake Total 1005 750 Output Total 800 450 Balance 205 300 Lab Results Last 24 Hours: Laboratory Results - last 24 hr 11/20/18 11/20/18 Range/Units 05:00 05:00 WBC 12.5 H (4.5-11.0) K/uL RBC 3.97 (3.30-5.50) M/uL Hgb 11.5 L (12.0-15.0) g/dL Hct 35.3 L (36.0-48.0) % MCV 89 (80-98) fL MCH 29 (27-31) pg MCHC 33 (32-36) % Plt Count 261 (150-400) K/uL Sodium 140 (140-148) mmol/L Potassium 3.3 L (3.6-5.2) mmol/L Chloride 104 (100-108) mmol/L Carbon Dioxide 28 (21-32) mmol/L Anion Gap 11.3 (5.0-14.0) mmol/L BUN 9 (7-18) mg/dL Creatinine 0.8 (0.6-1.0) mg/dL Est Cr Clr Drug Dosing 57.74 mL/min Estimated GFR (MDRD) > 60 (>60) Glucose 94 (74-106) mg/dL Calcium 8.6 (8.5-10.1) mg/dL Med Orders - Current: Current Medications Acetaminophen (Tylenol) 650 mg PO Q4H PRN PRN Reason: Pain (Mild 1-3)/fever Last Admin: 11/18/18 19:45 Dose: 650 mg Bupropion HCl (Wellbutrin Sr) 300 mg PO DAILY [facility] Last Admin: 11/19/18 08:43 Dose: 300 mg Cetirizine HCl (Zyrtec) 10 mg PO DAILY [facility] Last Admin: 11/19/18 08:43 Dose: 10 mg Hydromorphone HCl (Dilaudid) 0.5 mg IVPUSH Q2H PRN PRN Reason: Pain (severe 7-10) Last Admin: 11/20/18 03:32 Dose: 0.5 mg Piperacillin/Tazobactam/ (Dextrose 3.375 gm/ Premix) 50 mls @ 100 mls/hr IV Q6H [facility] Last Admin: 11/20/18 03:18 Dose: 100 mls/hr Lactated Ringer's (Ringers, Lactated) 1,000 mls @ 25 mls/hr IV ASDIRECTED [facility] Last Admin: 11/19/18 21:43 Dose: 25 mls/hr Potassium Chloride 20 meq/Lidocaine HCl 2 ml/ Sodium Chloride 112 mls @ 50 mls/ hr IV Q2H [facility] Stop: 11/20/18 13:59 Ibuprofen (Motrin) 600 mg PO Q6H PRN PRN Reason: Headache Last Admin: 11/19/18 20:34 Dose: 600 mg Lorazepam (Ativan) 0.25 mg IVPUSH Q2H PRN PRN Reason: Nausea Last Admin: 11/17/18 20:36 Dose: 0.25 mg Magnesium Hydroxide (Milk Of Magnesia) 30 ml PO DAILY PRN PRN Reason: Constipation Last Admin: 11/19/18 12:07 Dose: 30 ml Ondansetron HCl (Zofran) 4 mg IV Q4H PRN PRN Reason: Nausea/Vomiting Last Admin: 11/19/18 03:11 Dose: 4 mg Oxycodone HCl (Oxycodone) 5 - 10 mg PO Q4H PRN PRN Reason: Pain Last Admin: 11/18/18 09:31 Dose: 10 mg Pantoprazole Sodium (Protonix Iv) 40 mg IVPUSH Q24H [facility] Last Admin: 11/19/18 10:46 Dose: 40 mg Polyethylene Glycol (Miralax) 17 gm PO DAILY PRN PRN Reason: Constipation Senna/Docusate Sodium (Senna Plus) 1 tab PO BID PRN PRN Reason: Constipation Last Admin: 11/19/18 12:07 Dose: 1 tab Sodium Chloride (Saline Flush) 10 ml FLUSH ASDIRECTED PRN PRN Reason: Keep Vein Open Thyroid ([place] Thyroid) 120 mg PO DAILY@0730 [facility] Last Admin: 11/19/18 07:38 Dose: 120 mg Zinc Acetate/Diphenhydramine (Banophen Anti-Itch 2% Crm) 1 gm TOP QID PRN PRN Reason: Rash Discontinued Medications Fentanyl (Sublimaze) 100 mcg IVPUSH ONETIME ONE Stop: 11/17/18 07:33 Last Admin: 11/17/18 07:42 Dose: 100 mcg Hydromorphone HCl (Dilaudid) 1 mg IVPUSH ONETIME ONE Stop: 11/17/18 02:53 Last Admin: 11/17/18 02:57 Dose: 1 mg Hydromorphone HCl (Dilaudid) 0.5 mg IVPUSH ONETIME ONE Stop: 11/17/18 03:23 Last Admin: 11/17/18 03:28 Dose: 0.5 mg Hydromorphone HCl (Dilaudid) 0.5 mg IVPUSH ONETIME ONE Stop: 11/17/18 06:34 Last Admin: 11/17/18 06:37 Dose: 0.5 mg Hydromorphone HCl (Dilaudid) 0.5 mg IVPUSH Q2H PRN PRN Reason: Pain Last Admin: 11/17/18 12:56 Dose: 0.5 mg Hydromorphone HCl (Dilaudid) 0.25 mg IVPUSH Q2H PRN PRN Reason: Pain Last Admin: 11/18/18 04:17 Dose: 0.25 mg Lactated Ringer's (Ringers, Lactated) 1,000 mls @ 1,000 mls/hr IV BOLUS ONE Stop: 11/17/18 04:02 Last Admin: 11/17/18 03:14 Dose: 1,000 mls/hr Lactated Ringer's (Ringers, Lactated) 1,000 mls @ 500 mls/hr IV ASDIRECTED [facility] Last Admin: 11/17/18 05:01 Dose: 500 mls/hr Sodium Chloride (Normal Saline) 75 mls @ 3 mls/sec IV ASDIRECTED [facility] Last Admin: 11/17/18 04:49 Dose: 3 mls/sec Lactated Ringer's (Ringers, Lactated) 1,000 mls @ 500 mls/hr IV BOLUS ONE Stop: 11/17/18 09:22 Last Admin: 11/17/18 07:29 Dose: 500 mls/hr Ampicillin Sodium/Sulbactam (Sodium 1.5 gm/ Sodium Chloride) 50 mls @ 100 mls/ hr IV Q6HR [facility] Last Admin: 11/18/18 04:11 Dose: 100 mls/hr Lactated Ringer's (Ringers, Lactated) 1,000 mls @ 125 mls/hr IV ASDIRECTED [facility] Last Admin: 11/18/18 02:35 Dose: 125 mls/hr Lactated Ringer's (Ringers, Lactated) 1,000 mls @ 75 mls/hr IV ASDIRECTED [facility] Last Admin: 11/19/18 03:01 Dose: 75 mls/hr Iopamidol (Isovue-300 (61%)) 100 ml IV . DIRECTED PRN PRN Reason: RADIOLOGY EXAM Stop: 11/18/18 04:33 Last Admin: 11/17/18 04:49 Dose: 100 ml Ondansetron HCl (Zofran Odt) 4 mg PO ONETIME ONE Stop: 11/17/18 02:53 Last Admin: 11/17/18 02:56 Dose: 4 mg Ondansetron HCl (Zofran Odt) 4 mg PO ONETIME ONE Stop: 11/17/18 03:48 Last Admin: 11/17/18 04:09 Dose: 4 mg Sodium Chloride (Saline Flush) 10 ml FLUSH ASDIRECTED PRN PRN Reason: Keep Vein Open Last Admin: 11/17/18 04:49 Dose: 10 ml - Exam Quality Assessment: No: Supplemental Oxygen General: Alert, Oriented, Cooperative, No Acute Distress Lungs: Normal Respiratory Effort GI/Abdominal Exam: Soft, No Distention Extremities: No Pedal Edema Skin: Warm, Dry Psy/Mental Status: Alert, Normal Affect - Problem List Review Problem List Initiated/Reviewed/Updated: Yes - My Orders Last 24 Hours: My Active Orders 11/19/18 16:08 Lactated Ringers [Ringers, Lactated] 1,000 ml IV ASDIRECTED 11/19/18 Dinner NPO After Midnight [Nothing per Oral After Midnight Diet] [DIET] 11/20/18 10:00 Potassium Chloride 20 meq Lidocaine 1% [Xylocaine 1%] 2 ml Sodium Chloride 0.9 % [Normal Saline] 100 ml IV Q2H 11/20/18 10:40 diphenhydrAMINE/Zinc Acetate [Banophen Anti-Itch 2% Crm] 1 gm TOP QID PRN 11/21/18 05:00 BASIC METABOLIC PANEL,BMP [CHEM] Timed CBC W/O DIFF,HEMOGRAM [HEME] Timed (1) - Plan Plan:: ASSESSMENT AND PLAN [place] PANCREATITIS WITH CHOLECYSTITIS AND CHOLELITHIASIS - likely secondary to common duct stone that seems to have passed. Pain stable and moderate at this time. Surgery planned for later today. -nothing by mouth -Gentle IV fluids -Pip/Tazo for antibiotic coverage -Reassess labs in a.m. HYPOTHYROIDISM - stable -Continue usual dose of outpatient thyroid replacement medication MAINTENANCE ISSUES -DVT prophylaxis; scuds -GI prophylaxis; Protonix 40 mg IV daily -Solitario catheter; not indicated -Nutrition; nothing by mouth until after surgery DISPOSITION - anticipate discharge to home after the hospital stay. Howard Ballard M.D.
[2018-11-20] MEDS: Cetirizine 10 MG Tab PO SCH (10:57)
[2018-11-20] MEDS: buPROPion 150 MG Tab.SR PO SCH (10:57)
[2018-11-20] MEDS ORDERED: Lidocaine 1% with EPINEPHrine 1:100,000 50 ML MDV ONE (11:07)
[2018-11-20] MEDS ORDERED: Bupivacaine 0.5% 30 ML SDV ONE (11:07)
[2018-11-20] MEDS: Pantoprazole 40 MG Vial IVPUSH SCH (11:08)
[2018-11-20] MEDS: LORazepam 2 MG/ML SDV IVPUSH PRN (11:25)
[2018-11-20] MEDS: Potassium Chloride 20 MEQ, Lidocaine 1% 2 ML in Sodium Chloride 0.9% 100 ML IV SCH ×2 (11:37→13:36)
[2018-11-20] MEDS ORDERED: Glycopyrrolate 0.2 MG/ML 5 ML MDV ONE (15:08)
[2018-11-20] MEDS ORDERED: Propofol 200 MG/20 ML SDV ONE (15:08)
[2018-11-20] MEDS ORDERED: Ondansetron 4 MG/2 ML SDV ONE (15:08)
[2018-11-20] MEDS ORDERED: Dexamethasone 4 MG/ML SDV ONE (15:08)
[2018-11-20] MEDS ORDERED: Neostigmine Methylsulfate 1 MG/ML 5 ML Syringe ONE (15:08)
[2018-11-20] MEDS ORDERED: Rocuronium 50 MG/5 ML Vial ONE (15:08)
[2018-11-20] MEDS ORDERED: fentaNYL 250 MCG/5 ML SDV ONE ×2 (15:08→16:57)
[2018-11-20] MEDS ORDERED: Succinylcholine 200 MG/10 ML MDV ONE (15:08)
[2018-11-20] MEDS ORDERED: hydrOXYzine HCl 100 MG/2 ML SDV IM ONE (17:51)
[2018-11-20] MEDS ORDERED: fentaNYL 100 MCG/2 ML SDV IVPUSH ONE (18:02)
[2018-11-21] MEDS: Lactated Ringers 1,000 ML IV SCH (01:52)
[2018-11-21] MEDS: HYDROmorphone 0.5 MG/0.5 ML Syringe IVPUSH PRN (04:34)
[2018-11-21] MEDS: Piperacillin/Tazobactam/Dext 3.375 GM in Premix Bag 1 BAG IV SCH ×2 (04:36→10:50)
--- NOTE | 2018-11-21 06:45 | PCM.DCSUM1 ---
Discharge Summary - Hospital Course Free Text/Narrative:: This 53 year old female was presented to the ER on December 07, 2018 complaining of upper abdominal pain, nausea and vomiting. She was found to have cholelithiasis with cholecystitis and pancreatitis. Her lipase was in excess of 42,000. By yesterday her pancreatitis had resolved so she was taken to the OR for a laparoscopic cholecystectomy with intra-operative cholangiogram. Today she notes incisional pain but is otherwise doing well. She has eaten regular food and wants to go home. She is discharged at this time in good condition. Diagnosis: Stroke: No - Discharge Data Discharge Date: 11/21/18 Discharge Disposition: Home, Self-Care 01 Condition: Good - Discharge Diagnosis/Problem(s) (1) Acute pancreatitis SNOMED Code(s): 334904531 ICD Code: K85.90 - ACUTE PANCREATITIS WITHOUT NECROSIS OR INFECTION, UNSP Status: Acute Current Visit: Yes Qualifiers: Pancreatitis type: biliary Acute pancreatitis complication: no infection or necrosis Qualified Code(s): K85.10 - Biliary acute pancreatitis without necrosis or infection - Patient Summary/Data Consults: Consultations 11/17/18 10:32 Consult to Physician [CONS] Routine Consulting Provider: Chip Arciniega Courtesy Call Completed to Consulting Physician: Yes Reason for Consult: Pancreatitis, cholecystitis - Patient Instructions Diet: Usual Diet as Tolerated Activity: No Lifting Over 10 Pounds (For two weeks), No Strenuous Activities ( For two weeks) Driving, Other: Do not drive while taking narcotic pain medication. Showering/Bathing: May Shower, No Tub Bathing/Swimming Notify Provider of: Fever, Increased Pain, Swelling and Redness, Drainage, Nausea and/or Vomiting - Discharge Plan *PRESCRIPTION DRUG MONITORING PROGRAM REVIEWED*: No *COPY OF PRESCRIPTION DRUG MONITORING REPORT IN PATIENT KATYA: No Home Medications: Home Meds Cetirizine HCl [Zyrtec] 10 mg PO DAILY 11/17/18 [History] Cyanocobalamin (Vitamin B-12) [Vitamin B-12] 1,000 mcg PO Q30D 11/17/18 [History ] Thyroid,Pork [Otologist Thyroid] 120 mg PO DAILY 11/17/18 [History] buPROPion HCl [Wellbutrin SR] 300 mg PO DAILY 11/17/18 [History] Forms: ED Department Discharge Referrals: PCP,None [Primary Care Provider] - Chip Arciniega MD [Physician] - (See me Saturday, December 01, 2018.) - Discharge Summary/Plan Comment DC Time >30 min.: Yes - General Info Functional Status: Reports: Pain Controlled, Tolerating Diet, Ambulating, Urinating - Review of Systems General: Reports: No Symptoms HEENT: Reports: No Symptoms Pulmonary: Reports: No Symptoms Cardiovascular: Reports: No Symptoms Gastrointestinal: Reports: Abdominal Pain (Incisional pain controlled. ) Genitourinary: Reports: No Symptoms Musculoskeletal: Reports: No Symptoms Skin: Reports: No Symptoms Neurological: Reports: No Symptoms Psychiatric: Reports: No Symptoms - Patient Data Vitals - Most Recent: Last Vital Signs Temp 97.7 F 11/21/18 04:00 Pulse 69 11/21/18 04:00 Resp 16 11/21/18 04:00 BP 139/76 11/21/18 04:00 Pulse Ox 92 L 11/21/18 04:00 Weight - Most Recent: 169 lb 15.622 oz I&O - Last 24 hours: Intake & Output 11/20/18 11/20/18 11/21/18 14:59 22:59 06:59 Intake Total 50 575 600 Output Total 1000 550 600 Balance -950 25 0 Lab Results - Last 24 hrs: Laboratory Results - last 24 hr 11/21/18 11/21/18 Range/Units 04:00 04:00 WBC 13.1 H (4.5-11.0) K/uL RBC 4.15 (3.30-5.50) M/uL Hgb 12.0 (12.0-15.0) g/dL Hct 36.6 (36.0-48.0) % MCV 88 (80-98) fL MCH 29 (27-31) pg MCHC 33 (32-36) % Plt Count 324 (150-400) K/uL Sodium 137 L (140-148) mmol/L Potassium 4.6 (3.6-5.2) mmol/L Chloride 103 (100-108) mmol/L Carbon Dioxide 28 (21-32) mmol/L Anion Gap 10.6 (5.0-14.0) mmol/L BUN 13 (7-18) mg/dL Creatinine 0.8 (0.6-1.0) mg/dL Est Cr Clr Drug Dosing 57.74 mL/min Estimated GFR (MDRD) > 60 (>60) Glucose 111 H (74-106) mg/dL Calcium 8.9 (8.5-10.1) mg/dL ANAI Results - Last 24 hrs: Microbiology 11/20/18 17:38 Gram Stain - Final Gallbladder Med Orders - Current: Current Medications Acetaminophen (Tylenol) 650 mg PO Q4H PRN PRN Reason: Pain (Mild 1-3)/fever Last Admin: 11/18/18 19:45 Dose: 650 mg Bupropion HCl (Wellbutrin Sr) 300 mg PO DAILY [facility] Last Admin: 11/20/18 10:57 Dose: Not Given Cetirizine HCl (Zyrtec) 10 mg PO DAILY [facility] Last Admin: 11/20/18 10:57 Dose: Not Given Hydromorphone HCl (Dilaudid) 0.5 mg IVPUSH Q2H PRN PRN Reason: Pain (severe 7-10) Last Admin: 11/21/18 04:34 Dose: 0.5 mg Piperacillin/Tazobactam/ (Dextrose 3.375 gm/ Premix) 50 mls @ 100 mls/hr IV Q6H [facility] Last Admin: 11/21/18 04:36 Dose: 100 mls/hr Lactated Ringer's (Ringers, Lactated) 1,000 mls @ 25 mls/hr IV ASDIRECTED [facility] Last Admin: 11/21/18 01:52 Dose: 25 mls/hr Ibuprofen (Motrin) 600 mg PO Q6H PRN PRN Reason: Headache Last Admin: 11/19/18 20:34 Dose: 600 mg Lorazepam (Ativan) 0.25 mg IVPUSH Q2H PRN PRN Reason: Nausea Last Admin: 11/20/18 11:25 Dose: 0.25 mg Magnesium Hydroxide (Milk Of Magnesia) 30 ml PO DAILY PRN PRN Reason: Constipation Last Admin: 11/19/18 12:07 Dose: 30 ml Ondansetron HCl (Zofran) 4 mg IV Q4H PRN PRN Reason: Nausea/Vomiting Last Admin: 11/19/18 03:11 Dose: 4 mg Oxycodone HCl (Oxycodone) 5 - 10 mg PO Q4H PRN PRN Reason: Pain Last Admin: 11/18/18 09:31 Dose: 10 mg Pantoprazole Sodium (Protonix Iv) 40 mg IVPUSH Q24H [facility] Last Admin: 11/20/18 11:08 Dose: 40 mg Polyethylene Glycol (Miralax) 17 gm PO DAILY PRN PRN Reason: Constipation Senna/Docusate Sodium (Senna Plus) 1 tab PO BID PRN PRN Reason: Constipation Last Admin: 11/19/18 12:07 Dose: 1 tab Sodium Chloride (Saline Flush) 10 ml FLUSH ASDIRECTED PRN PRN Reason: Keep Vein Open Thyroid ([place] Thyroid) 120 mg PO DAILY@0730 [facility] Last Admin: 11/20/18 10:57 Dose: Not Given Zinc Acetate/Diphenhydramine (Banophen Anti-Itch 2% Crm) 0 gm TOP QID PRN PRN Reason: Rash Discontinued Medications Bupivacaine HCl (Marcaine 0.5%) Confirm Administered Dose 30 ml .ROUTE .STK-MED ONE Stop: 11/20/18 11:08 Last Admin: 11/20/18 17:11 Dose: 20 ml Dexamethasone (Dexamethasone) Confirm Administered Dose 4 mg .ROUTE .STK-MED ONE Stop: 11/20/18 15:09 Fentanyl (Sublimaze) 100 mcg IVPUSH ONETIME ONE Stop: 11/17/18 07:33 Last Admin: 11/17/18 07:42 Dose: 100 mcg Fentanyl (Sublimaze) Confirm Administered Dose 250 mcg .ROUTE .STK-MED ONE Stop: 11/20/18 15:09 Fentanyl (Sublimaze) Confirm Administered Dose 250 mcg .ROUTE .STK-MED ONE Stop: 11/20/18 16:58 Fentanyl (Sublimaze) 100 mcg IVPUSH ONETIME ONE Stop: 11/20/18 18:03 Last Admin: 11/20/18 18:09 Dose: 100 mcg Glycopyrrolate (Robinul) Confirm Administered Dose 1 mg .ROUTE .STK-MED ONE Stop: 11/20/18 15:09 Hydromorphone HCl (Dilaudid) 1 mg IVPUSH ONETIME ONE Stop: 11/17/18 02:53 Last Admin: 11/17/18 02:57 Dose: 1 mg Hydromorphone HCl (Dilaudid) 0.5 mg IVPUSH ONETIME ONE Stop: 11/17/18 03:23 Last Admin: 11/17/18 03:28 Dose: 0.5 mg Hydromorphone HCl (Dilaudid) 0.5 mg IVPUSH ONETIME ONE Stop: 11/17/18 06:34 Last Admin: 11/17/18 06:37 Dose: 0.5 mg Hydromorphone HCl (Dilaudid) 0.5 mg IVPUSH Q2H PRN PRN Reason: Pain Last Admin: 11/17/18 12:56 Dose: 0.5 mg Hydromorphone HCl (Dilaudid) 0.25 mg IVPUSH Q2H PRN PRN Reason: Pain Last Admin: 11/18/18 04:17 Dose: 0.25 mg Hydroxyzine HCl (Vistaril) 100 mg IM ONETIME ONE Stop: 11/20/18 17:52 Last Admin: 11/20/18 17:57 Dose: 100 mg Lactated Ringer's (Ringers, Lactated) 1,000 mls @ 1,000 mls/hr IV BOLUS ONE Stop: 11/17/18 04:02 Last Admin: 11/17/18 03:14 Dose: 1,000 mls/hr Lactated Ringer's (Ringers, Lactated) 1,000 mls @ 500 mls/hr IV ASDIRECTED [facility] Last Admin: 11/17/18 05:01 Dose: 500 mls/hr Sodium Chloride (Normal Saline) 75 mls @ 3 mls/sec IV ASDIRECTED [facility] Last Admin: 11/17/18 04:49 Dose: 3 mls/sec Lactated Ringer's (Ringers, Lactated) 1,000 mls @ 500 mls/hr IV BOLUS ONE Stop: 11/17/18 09:22 Last Admin: 11/17/18 07:29 Dose: 500 mls/hr Ampicillin Sodium/Sulbactam (Sodium 1.5 gm/ Sodium Chloride) 50 mls @ 100 mls/ hr IV Q6HR [facility] Last Admin: 11/18/18 04:11 Dose: 100 mls/hr Lactated Ringer's (Ringers, Lactated) 1,000 mls @ 125 mls/hr IV ASDIRECTED [facility] Last Admin: 11/18/18 02:35 Dose: 125 mls/hr Lactated Ringer's (Ringers, Lactated) 1,000 mls @ 75 mls/hr IV ASDIRECTED [facility] Last Admin: 11/19/18 03:01 Dose: 75 mls/hr Potassium Chloride 20 meq/Lidocaine HCl 2 ml/ Sodium Chloride 112 mls @ 50 mls/ hr IV Q2H [facility] Stop: 11/20/18 13:59 Last Admin: 11/20/18 13:36 Dose: 50 mls/hr Iopamidol (Isovue-300 (61%)) 100 ml IV . DIRECTED PRN PRN Reason: RADIOLOGY EXAM Stop: 11/18/18 04:33 Last Admin: 11/17/18 04:49 Dose: 100 ml Lidocaine/Epinephrine (Xylocaine 1% With Epinephrine 1:100,000) Confirm Administered Dose 50 ml .ROUTE .STK-MED ONE Stop: 11/20/18 11:08 Last Admin: 11/20/18 17:12 Dose: 20 ml Neostigmine Methylsulfate (Neostigmine) Confirm Administered Dose 5 mg .ROUTE .STK-MED ONE Stop: 11/20/18 15:09 Ondansetron HCl (Zofran Odt) 4 mg PO ONETIME ONE Stop: 11/17/18 02:53 Last Admin: 11/17/18 02:56 Dose: 4 mg Ondansetron HCl (Zofran Odt) 4 mg PO ONETIME ONE Stop: 11/17/18 03:48 Last Admin: 11/17/18 04:09 Dose: 4 mg Ondansetron HCl (Zofran) Confirm Administered Dose 4 mg .ROUTE .STK-MED ONE Stop: 11/20/18 15:09 Propofol (Diprivan 20 Ml) Confirm Administered Dose 200 mg .ROUTE .STK-MED ONE Stop: 11/20/18 15:09 Rocuronium [place] (Zemuron) Confirm Administered Dose 50 mg .ROUTE .STK-MED ONE Stop: 11/20/18 15:09 Sodium Chloride (Saline Flush) 10 ml FLUSH ASDIRECTED PRN PRN Reason: Keep Vein Open Last Admin: 11/17/18 04:49 Dose: 10 ml Succinylcholine Chloride (Quelicin) Confirm Administered Dose 200 mg .ROUTE .STK -MED ONE Stop: 11/20/18 15:09 - Exam General: Reports: Alert, Oriented, Cooperative, No Acute Distress Lungs: Reports: Clear to Auscultation, Normal Respiratory Effort Cardiovascular: Reports: Regular Rate, Regular Rhythm GI/Abdominal Exam: Normal Bowel Sounds, Soft Back Exam: Reports: Normal Inspection Extremities: Normal Inspection Skin: Reports: Warm, Dry, Intact Wound/Incisions: Reports: Healing Well Neurological: Reports: No New Focal Deficit Psy/Mental Status: Reports: Alert, Normal Affect, Normal Mood Discharge Operative/Procedures - Procedures Performed Operations: Laparoscopic cholecystectomy with intra-operative cholangiogram.
--- NOTE | 2018-11-21 09:06 | OR ---
DATE OF PROCEDURE: 11/20/2018 PREOPERATIVE DIAGNOSES: Chronic cholecystitis with cholelithiasis, resolved pancreatitis. POSTOPERATIVE DIAGNOSES: Chronic cholecystitis with cholelithiasis, resolved pancreatitis. PROCEDURE: Laparoscopic cholecystectomy with intraoperative cholangiogram. SURGEON: Chip Arciniega MD ANESTHESIA: IV anesthesia with monitored anesthesia care. INDICATIONS: This 53-year-old white female was admitted to the hospital 3 days ago complaining of severe epigastric abdominal pain with nausea and vomiting. She was noted to be tender in the epigastrium. She was afebrile. Her white count was 12,600. Remarkably, she had a lipase of 43,438. CAT scan of her abdomen and pelvis was consistent with cholelithiasis and pancreatitis. Ultrasound showed the stone in her gallbladder. There was no ductal dilatation. There was some gallbladder wall thickening, suggestive of acute cholecystitis. Her pancreatitis has resolved with IV fluid support. She has been receiving Zosyn. The last Zosyn dose was about 40 minutes before we made the skin incision. She was taken to the operating room at this time then for a laparoscopic cholecystectomy with intraoperative cholangiogram. I counseled her for surgery, including risks and alternatives, and she gave her informed consent to proceed. DESCRIPTION OF PROCEDURE: After adequate general endotracheal anesthesia was obtained, the patient's abdomen was prepped and draped in usual sterile fashion. The leg compression stockings were in place and used during the entire procedure. Time-out was held. An infraumbilical semicircular incision was made. Under direct vision, a 12-mm port was introduced into the abdomen through this incision using the Optiview technique. The camera was introduced into the abdomen, and the abdomen was insufflated to a pressure of 15 mmHg with carbon dioxide. No evidence of intraabdominal injury was seen. Under direct vision, a 12-mm port was placed in the epigastrium and a 5-mm port was placed in the right lower quadrant. The gallbladder was grasped and elevated. It was noted to have adhesions to it of omentum consistent with chronic cholecystitis. These were dissected free with electrocautery assistance. The cystic duct and arteries were dissected free. The duct was clipped right up on the gallbladder. A small ductotomy was made next to the clip. We then performed cholangiograms by injecting 10 mL and then 20 mL of half-strength contrast material. This showed no filling defects, good flow into the duodenum, good retrograde flow into the hepatic radicles, and a normal-sized duct. The cholangiocatheter was removed, and the duct was clipped 3 times adjacent to the ductotomy site and divided at the ductotomy site. The cystic artery was clipped a couple of times proximally, once distally and divided between clips. The gallbladder was then dissected free from the gallbladder bed using Bovie electrocautery. The gallbladder was placed in a sample retrieval bag and elevated up through the anterior abdominal wall via the epigastric port site. To accomplish this, we did have to expand the incision a little, as there was a large stone within the gallbladder. The epigastric port was reintroduced back into the abdomen. The gallbladder bed was irrigated and suctioned dry, all looked well. The fascial closure device was used to place a 0 Vicryl stitch in the epigastric fascial defect. A [id number] stitch of 0 Vicryl was used to close the infraumbilical fascial defect. We evacuated as much CO2 as we could from the abdomen via the 5-mm port site in the right lower quadrant, and then this port was removed. Lidocaine 1% with epinephrine in a 50:50 mix with 0.5% Marcaine was infiltrated about all incisions. A 4-0 Vicryl using a subcuticular stitch was placed to approximate the skin of the incisions. Dermabond was applied. The anesthesia was reversed. She was extubated and brought to recovery room in good condition. Chip Arciniega MD /[id number]
[2018-11-21] MEDS: Pantoprazole 40 MG Vial IVPUSH SCH (10:50)
[2018-11-21] MEDS: buPROPion 150 MG Tab.SR PO SCH (10:51)
[2018-11-21] MEDS: Cetirizine 10 MG Tab PO SCH (10:51)
[2018-11-21] MEDS: oxyCODONE 5 MG Tab PO PRN ×2 (13:30→16:44)
--- NOTE | 2018-11-23 15:02 | PCM.PN ---
- General Info Date of Service: 11/19/18 Subjective Update: There were no acute events overnight. Abdominal pain remains moderate and unchanged. Patient feels tired and has no appetite. She has not had any fevers. Lipase level has normalized. Surgery is planned for tomorrow. Functional Status: Reports: Pain Controlled, Tolerating Diet - Review of Systems General: Denies: Fever - Patient Data Vitals - Most Recent: Last Vital Signs Temp 37.0 C 11/21/18 17:03 Pulse 61 11/21/18 09:10 Resp 16 11/21/18 09:10 BP 126/71 11/21/18 09:10 Pulse Ox 89 L 11/21/18 09:10 Weight - Most Recent: 77.1 kg Yunior Results Last 24 Hours: Microbiology 11/20/18 17:38 Gram Stain - Final Gallbladder Wound Culture - Preliminary NO GROWTH AFTER 2 DAYS Anaerobic Culture - Preliminary NO GROWTH AFTER 2 DAYS Med Orders - Current: Current Medications Discontinued Medications Acetaminophen (Tylenol) 650 mg PO Q4H PRN PRN Reason: Pain (Mild 1-3)/fever Last Admin: 11/18/18 19:45 Dose: 650 mg Bupivacaine HCl (Marcaine 0.5%) Confirm Administered Dose 30 ml .ROUTE .STK-MED ONE Stop: 11/20/18 11:08 Last Admin: 11/20/18 17:11 Dose: 20 ml Bupropion HCl (Wellbutrin Sr) 300 mg PO DAILY [facility] Last Admin: 11/21/18 10:51 Dose: 300 mg Cetirizine HCl (Zyrtec) 10 mg PO DAILY [facility] Last Admin: 11/21/18 10:51 Dose: 10 mg Dexamethasone (Dexamethasone) Confirm Administered Dose 4 mg .ROUTE .STK-MED ONE Stop: 11/20/18 15:09 Fentanyl (Sublimaze) 100 mcg IVPUSH ONETIME ONE Stop: 11/17/18 07:33 Last Admin: 11/17/18 07:42 Dose: 100 mcg Fentanyl (Sublimaze) Confirm Administered Dose 250 mcg .ROUTE .STK-MED ONE Stop: 11/20/18 15:09 Fentanyl (Sublimaze) Confirm Administered Dose 250 mcg .ROUTE .STK-MED ONE Stop: 11/20/18 16:58 Fentanyl (Sublimaze) 100 mcg IVPUSH ONETIME ONE Stop: 11/20/18 18:03 Last Admin: 11/20/18 18:09 Dose: 100 mcg Glycopyrrolate (Robinul) Confirm Administered Dose 1 mg .ROUTE .STK-MED ONE Stop: 11/20/18 15:09 Hydromorphone HCl (Dilaudid) 1 mg IVPUSH ONETIME ONE Stop: 11/17/18 02:53 Last Admin: 11/17/18 02:57 Dose: 1 mg Hydromorphone HCl (Dilaudid) 0.5 mg IVPUSH ONETIME ONE Stop: 11/17/18 03:23 Last Admin: 11/17/18 03:28 Dose: 0.5 mg Hydromorphone HCl (Dilaudid) 0.5 mg IVPUSH ONETIME ONE Stop: 11/17/18 06:34 Last Admin: 11/17/18 06:37 Dose: 0.5 mg Hydromorphone HCl (Dilaudid) 0.5 mg IVPUSH Q2H PRN PRN Reason: Pain Last Admin: 11/17/18 12:56 Dose: 0.5 mg Hydromorphone HCl (Dilaudid) 0.25 mg IVPUSH Q2H PRN PRN Reason: Pain Last Admin: 11/18/18 04:17 Dose: 0.25 mg Hydromorphone HCl (Dilaudid) 0.5 mg IVPUSH Q2H PRN PRN Reason: Pain (severe 7-10) Last Admin: 11/21/18 04:34 Dose: 0.5 mg Hydroxyzine HCl (Vistaril) 100 mg IM ONETIME ONE Stop: 11/20/18 17:52 Last Admin: 11/20/18 17:57 Dose: 100 mg Lactated Ringer's (Ringers, Lactated) 1,000 mls @ 1,000 mls/hr IV BOLUS ONE Stop: 11/17/18 04:02 Last Admin: 11/17/18 03:14 Dose: 1,000 mls/hr Lactated Ringer's (Ringers, Lactated) 1,000 mls @ 500 mls/hr IV ASDIRECTED [facility] Last Admin: 11/17/18 05:01 Dose: 500 mls/hr Sodium Chloride (Normal Saline) 75 mls @ 3 mls/sec IV ASDIRECTED [facility] Last Admin: 11/17/18 04:49 Dose: 3 mls/sec Lactated Ringer's (Ringers, Lactated) 1,000 mls @ 500 mls/hr IV BOLUS ONE Stop: 11/17/18 09:22 Last Admin: 11/17/18 07:29 Dose: 500 mls/hr Ampicillin Sodium/Sulbactam (Sodium 1.5 gm/ Sodium Chloride) 50 mls @ 100 mls/ hr IV Q6HR [facility] Last Admin: 11/18/18 04:11 Dose: 100 mls/hr Lactated Ringer's (Ringers, Lactated) 1,000 mls @ 125 mls/hr IV ASDIRECTED [facility] Last Admin: 11/18/18 02:35 Dose: 125 mls/hr Piperacillin/Tazobactam/ (Dextrose 3.375 gm/ Premix) 50 mls @ 100 mls/hr IV Q6H [facility] Last Admin: 11/21/18 10:50 Dose: 100 mls/hr Lactated Ringer's (Ringers, Lactated) 1,000 mls @ 75 mls/hr IV ASDIRECTED [facility] Last Admin: 11/19/18 03:01 Dose: 75 mls/hr Lactated Ringer's (Ringers, Lactated) 1,000 mls @ 25 mls/hr IV ASDIRECTED [facility] Last Admin: 11/21/18 01:52 Dose: 25 mls/hr Potassium Chloride 20 meq/Lidocaine HCl 2 ml/ Sodium Chloride 112 mls @ 50 mls/ hr IV Q2H [facility] Stop: 11/20/18 13:59 Last Admin: 11/20/18 13:36 Dose: 50 mls/hr Ibuprofen (Motrin) 600 mg PO Q6H PRN PRN Reason: Headache Last Admin: 11/19/18 20:34 Dose: 600 mg Iopamidol (Isovue-300 (61%)) 100 ml IV . DIRECTED PRN PRN Reason: RADIOLOGY EXAM Stop: 11/18/18 04:33 Last Admin: 11/17/18 04:49 Dose: 100 ml Lidocaine/Epinephrine (Xylocaine 1% With Epinephrine 1:100,000) Confirm Administered Dose 50 ml .ROUTE .STK-MED ONE Stop: 11/20/18 11:08 Last Admin: 11/20/18 17:12 Dose: 20 ml Lorazepam (Ativan) 0.25 mg IVPUSH Q2H PRN PRN Reason: Nausea Last Admin: 11/20/18 11:25 Dose: 0.25 mg Magnesium Hydroxide (Milk Of Magnesia) 30 ml PO DAILY PRN PRN Reason: Constipation Last Admin: 11/19/18 12:07 Dose: 30 ml Neostigmine Methylsulfate (Neostigmine) Confirm Administered Dose 5 mg .ROUTE .STK-MED ONE Stop: 11/20/18 15:09 Ondansetron HCl (Zofran Odt) 4 mg PO ONETIME ONE Stop: 11/17/18 02:53 Last Admin: 11/17/18 02:56 Dose: 4 mg Ondansetron HCl (Zofran Odt) 4 mg PO ONETIME ONE Stop: 11/17/18 03:48 Last Admin: 11/17/18 04:09 Dose: 4 mg Ondansetron HCl (Zofran) 4 mg IV Q4H PRN PRN Reason: Nausea/Vomiting Last Admin: 11/19/18 03:11 Dose: 4 mg Ondansetron HCl (Zofran) Confirm Administered Dose 4 mg .ROUTE .STK-MED ONE Stop: 11/20/18 15:09 Oxycodone HCl (Oxycodone) 5 - 10 mg PO Q4H PRN PRN Reason: Pain Last Admin: 11/21/18 16:44 Dose: 10 mg Pantoprazole Sodium (Protonix Iv) 40 mg IVPUSH Q24H [facility] Last Admin: 11/21/18 10:50 Dose: 40 mg Polyethylene Glycol (Miralax) 17 gm PO DAILY PRN PRN Reason: Constipation Propofol (Diprivan 20 Ml) Confirm Administered Dose 200 mg .ROUTE .STK-MED ONE Stop: 11/20/18 15:09 Rocuronium [place] (Zemuron) Confirm Administered Dose 50 mg .ROUTE .STK-MED ONE Stop: 11/20/18 15:09 Senna/Docusate Sodium (Senna Plus) 1 tab PO BID PRN PRN Reason: Constipation Last Admin: 11/19/18 12:07 Dose: 1 tab Sodium Chloride (Saline Flush) 10 ml FLUSH ASDIRECTED PRN PRN Reason: Keep Vein Open Last Admin: 11/17/18 04:49 Dose: 10 ml Sodium Chloride (Saline Flush) 10 ml FLUSH ASDIRECTED PRN PRN Reason: Keep Vein Open Succinylcholine Chloride (Quelicin) Confirm Administered Dose 200 mg .ROUTE .STK -MED ONE Stop: 11/20/18 15:09 Thyroid ([place] Thyroid) 120 mg PO DAILY@0730 [facility] Last Admin: 11/21/18 10:50 Dose: 120 mg Zinc Acetate/Diphenhydramine (Banophen Anti-Itch 2% Crm) 0 gm TOP QID PRN PRN Reason: Rash - Exam Quality Assessment: No: Supplemental Oxygen General: Alert, Oriented, Cooperative, No Acute Distress Lungs: Normal Respiratory Effort Cardiovascular: Regular Rate, Regular Rhythm GI/Abdominal Exam: Soft, No Distention Extremities: No Pedal Edema Psy/Mental Status: Alert, Normal Affect - Problem List Review Problem List Initiated/Reviewed/Updated: Yes - Plan Plan:: ASSESSMENT AND PLAN [place] PANCREATITIS WITH CHOLECYSTITIS AND CHOLELITHIASIS - likely secondary to common duct stone that seems to have passed. Pain persists but is slightly better than yesterday. Lipase level normal and surgery will likely happen tomorrow. -Clear liquids -Gentle IV fluids -Pip/Tazo for antibiotic coverage -Reassess labs in a.m. -Plan for surgical intervention tomorrow HYPOTHYROIDISM - stable -Continue usual dose of outpatient thyroid replacement medication MAINTENANCE ISSUES -DVT prophylaxis; scuds -GI prophylaxis; Protonix 40 mg IV daily -Solitario catheter; not indicated -Nutrition; clear liquids today, nothing by mouth after midnight DISPOSITION - anticipate discharge to home after the hospital stay. Howard Ballard M.D.
== END 2018-11-21 17:05 | disposition home or self-care (01) | DRG 263 ==
LOC: JP.ED 02:32 → JP.ICU 08:51 → JP.MS 11-18 10:34
PROVIDERS: ADMIT Hospitalist; ATTEND Internal Medicine
PROC: 0FT44ZZ Resection of Gallbladder, Percutaneous Endoscopic Approach (ICD-10-PCS; principal; 2018-11-20)
PROC: BF03YZZ Plain Radiography of Gallbladder and Bile Ducts using Other Contrast (ICD-10-PCS; 2018-11-20)
DX: K85.10 Biliary acute pancreatitis without necrosis or infection (principal); K80.12 Calculus of gallbladder with acute and chronic cholecystitis without obstruction; E03.9 Hypothyroidism, unspecified; F17.210 Nicotine dependence, cigarettes, uncomplicated; G43.909 Migraine, unspecified, not intractable, without status migrainosus; F32.9 Major depressive disorder, single episode, unspecified; E66.9 Obesity, unspecified; Z68.35 Body mass index [BMI] 35.0-35.9, adult; Z87.442 Personal history of urinary calculi; Z91.030 Bee allergy status; Z91.018 Allergy to other foods; Z88.8 Allergy status to other drugs, medicaments and biological substances
CPT/HCPCS: 36415; 74177; 74300; 76705; 80048; 80053; 81001; 82150; 82247; 83690; 83735; 84443; 84478; 85025; 85027; 87070; 87075; 87205; 88304; 93005; 96361; 96374; 96375; 96376; 99285-25; A9270-GY; C9113; J0287; J0330; J1100; J1170; J2001; J2060; J2405; J2543; J2704; J2710; J3010; J3410; J3480; J3490; J7030; J7050; J7120; Q9967